=== PATIENT | female | born 1975 | race Caucasian/White ===

== ENCOUNTER → 2021-12-16 | Outpatient (CLI) | payer OTHER ==
--- NOTE | 2021-12-16 12:22 | XR ---
EXAMINATION TYPE: XR lumbar spine 2 or 3V DATE OF EXAM: 12/16/2021 Comparison: Correlation CT 12/09/2021. Clinical History: 46-year-old female pain, DDD Findings: There is a transitional lumbosacral segment with a right L5 hemisacralization and a mildly degenerati ve assimilation joint noted. Facet arthropathy mid to lower lumbar spine. Mild degenerative disc dise ase mid and lower lumbar spine. Vertebral body heights are preserved and alignment is maintained. Impression: 1. Patient's left L4-L5 surgical change is not well delineated radiographically. 2. Right L5 hemisacralization with a mildly degenerative assimilation joint. This has likely contribu anand to the accelerated degenerative disc disease above at L4-L5. 3. Facet arthropathy mid to lower lumbar spine. 4. No vertebral compression collapse or malalignment.
== END | disposition home or self-care (01) ==
LOC: RADXRMAIN 09:45
PROVIDERS: ATTEND Family Medicine
DX: M47.816 Spondylosis without myelopathy or radiculopathy, lumbar region (principal)
CPT/HCPCS: 72100

== ENCOUNTER → 2022-05-12 | Outpatient (CLI) | payer BC ==
[2022-05-12 08:43] VITALS: BP 173/103; PULSE 80; RESP 17; TEMP 98.7
--- NOTE | 2022-05-12 09:32 | P.HPOB ---
History of Present Illness H&P Date: 05/12/22 Chief Complaint: The patient is here for her routine gynecologic exam and ma mmogram. This is a 46-year-old 0-1 with an LMP of January 2022. The patient is here to establish with this office. She has not had a pelvic exam since approximately 2018. She is on oral contraception and has been taking it in a semicontinuous fashion. She was started on the oral contraception in [place]. She has since moved to [place]. She is a and is not sexually active. She has been a since August 2021. She thinks the oral contraception helps with a skin condition. She states without oral contraception she tends to have more flaky skin. She is without gynecologic complaints. Review of Systems Her weight has fluctuated by about 15 pounds over the past year. She states she lost weight when her earlier this year, but has gained some back. She denies cardiac problems. Respiratory: She can feel short of breath with exertion. GI: She does have some stomach issues including gastric reflux. Past Medical History Past Medical History: GERD/Reflux, Hypertension Additional Past Medical History / Comment(s): IRRITABLE BOWEL, degenerative disc disease. 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 History of Any Multi-Drug Resistant Organisms: None Reported Past Surgical History: Breast Surgery, Tonsillectomy Additional Past Surgical History / Comment(s): Back surgery, BREAST AUGMENTATION with silicone implants. LEEP procedure of the cervix in her 20s. Past Anesthesia/Blood Transfusion Reactions: No Reported Reaction Past Psychological History: Anxiety, Depression Smoking Status: Never smoker Past Alcohol Use History: Occasional (6 drinks per week.) Additional Past Alcohol Use History / Comment(s): History of heavy alcohol use in the past. Past Drug Use History: None Reported Additional Drug Use History / Comment(s): CBD gummies. Additional History: She has been a since August 2021. 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 - Past Family History Mother Family Medical History: Cancer, COPD, Diabetes Mellitus, Thyroid Disorder Additional Family Medical History / Comment(s): Breast cancer. Hypothyroidism. Maternal aunt has diabetes. Father Family Medical History: Unable to Obtain Medications and Allergies Home Medications Medication Instructions Recorded Confirmed Type Amitriptyline HCl 10 mg PO DAILY 10/25/22 10/25/22 History Ethinyl Estradiol/Drospirenone 1 tab PO DAILY 05/12/22 05/12/22 History [Aimee 28 Tablet] Gabapentin 300 mg PO HS 05/12/22 05/12/22 History HYDROcodone/APAP 7.5-325MG [[place] 1 tab PO BID PRN 05/12/22 05/12/22 History 7.5-325] Lisinopril/Hydrochlorothiazide 1 tablet PO DAILY 05/12/22 05/12/22 History [Zestoretic 20-25] Omeprazole 40 mg PO DAILY PRN 05/12/22 05/12/22 History Spironolactone 25 mg PO DAILY 05/12/22 05/12/22 History Allergies Allergy/AdvReac Type Severity Reaction Status Date / Time No Known Allergies Allergy Unverified 05/12/22 08:33 Exam Vital Signs Temp Pulse Resp BP Pulse Ox 05/12/22 08:37 98.7 F 80 17 173/103 100 Intake and Output 05/11/22 05/12/22 05/12/22 22:59 06:59 14:59 Other: Weight 65.317 kg Repeat blood pressure 140/90. Height 5 feet 6 inches, weight 144 pounds, BMI 23.2. This is a well-developed well-nourished white female who is alert and oriented times 3 in no acute distress. HEENT: Within normal limits. NECK: Supple without mass or thyromegaly. CHEST AND LUNGS: Clear to auscultation. HEART: Regular rate and rhythm. BREASTS: Are without mass or discharge. Breasts are consistent with bilateral breast implants. AXILLARY EXAM: Negative for adenopathy. BACK: Negative for CVA tenderness. ABDOMEN: Soft, nontender, without palpable masses. PELVIC EXAM: Normal external genitalia. Cervix and vagina appear normal. There is no unusual discharge. There is no evidence of prolapse. The uterus is midposition, nongravid size and nontender. There are no palpable adnexal masses or tenderness. RECTAL EXAM: negative for mass or tenderness and is negative for occult blood. EXTREMITIES: Nontender. IMPRESSION: 1. 46-year-old female with normal gynecologic exam. 2. The patient is on semicontinuous oral contraception which is currently being use for non-contraception use. 3. History of chronic hypertension with elevated blood pressure today. PLAN: 1. Pap smear cotest was performed. 2. Self breast awareness was discussed with the patient. We have also discussed symptoms associated with inflammatory breast cancer. 3. Screening mammogram will be done today. 4. I recommended she discontinue her oral contraception. She understands that with oral contraception, she increases her risk for blood clots, heart attack, and stroke. Along with her age and history of chronic hypertension and elevated blood pressure today, I think oral contraception significantly increases her risk for problems. She was instructed to discontinue oral contraception. 5. STD prevention was discussed. I stressed the importance of limiting sexual partners and using condoms, if she is sexually active. 6. I have recommended that she make sure she takes her blood pressure medication. She states she has not been consistent with this. I have also recommended that she check her own blood pressure on a regular basis. She is to follow-up with her PCP for blood pressure elevations. 7. She will also follow up with her PCP for other ongoing medical issues including shortness of breath with exertion as well as her stomach issues. 8. She was advised to return in one year for her annual well woman exam and as needed.
== END ==
LOC: WWCWWP 08:26
PROVIDERS: ATTEND Obstetrics & Gynecology
DX: Z01.419 Encounter for gynecological examination (general) (routine) without abnormal findings (principal); Z12.31 Encounter for screening mammogram for malignant neoplasm of breast; Z80.3 Family history of malignant neoplasm of breast; I10 Essential (primary) hypertension; Z79.3 Long term (current) use of hormonal contraceptives
CPT/HCPCS: 77063; 77067

== ENCOUNTER → 2022-05-25 | Outpatient (CLI) | payer BC ==
--- NOTE | 2022-05-26 04:30 | MR ---
EXAMINATION TYPE: MR lumbar spine wo con DATE OF EXAM: 05/25/2022 COMPARISON: None HISTORY: Low back pain that radiates down mostly left leg, sometimes right, history of surgery. Multiplanar multiecho imaging of the lumbar spine performed with no contrast. The lumbar vertebrae have normal alignment. There is some mild disc space narrowing at L3-4 and L4-5. There is posterior mild disc bulging at L3-4 and L4-5. There is developmentally adequate spinal festus l and no significant spinal stenosis. There is no paraspinal mass. Posterior elements are intact. No compression fracture. No focal bone destruction. The neural foramina appear fairly well-maintained. IMPRESSION: Mild degenerative disc changes in the lumbar spine. Small posterior disc bulging and herniation at L3 -4 and L4-5 without spinal stenosis.
== END | disposition home or self-care (01) ==
LOC: RADMRIMAIN 20:30
PROVIDERS: ATTEND Orthopaedic Surgery
DX: M47.26 Other spondylosis with radiculopathy, lumbar region (principal); M51.16 Intervertebral disc disorders with radiculopathy, lumbar region; M48.061 Spinal stenosis, lumbar region without neurogenic claudication
CPT/HCPCS: 72148

== ENCOUNTER → 2022-06-08 | Outpatient (CLI) | payer BC ==
[2022-06-08 13:44] VITALS: PULSE 77; RESP 18
--- NOTE | 2022-06-08 14:52 | P.PAINPG ---
PQRS Measure Charge Sheet Comment: HISTORY OF PRESENT ILLNESS: 46 yr old female as a referral from Dr Edwards presents today w severe and chronic LBP x 4 yrs secondary to spondylosis for evaluation. Pt states pain level is at 6/10 in intensity, constant, localized in the lower lumbar spine, sharp, achy in character w shooting pain towards BL groin, L>R. Pain is provoked by over activity. Pain is alleviated by meds ([place] 7.5/325mg, Neurontin 300gm QHS from Dr Edwards), topicals, chiropractic treatments without relief, home exercises as tolerated, repositioning and rest. PMH: GERD, HTN, IBS, MDD/ Anxiety PSH: Cervical LEEP (in the 1999s), Lumbar Microdisectomy, Breast Augmentation, Tonsillectomy, SH: Never smoker, Occasional ETOH use ( Hx of heavy ETOH use in the past), +CBD gummies FH: Mo- Breast CA, COPD, DM, Hypothyroidism. Fa- Unable to obtain. All: NKDA Meds: See list REVIEW OF ORGAN SYSTEMS: CONSTITUTIONAL: No fevers or chills. No recent weight loss. NEUROLOGICAL: + numbness and tingling along the distal extremities. No seizure disorders or headaches. MUSCULOSKELETAL: + pain PSYCHIATRIC: Denies current depression or suicidal thoughts. Physical Examinations : Constitutional : Cooperative , not in acute distress . Neurologic : Cranial nerve II to XII intact. No focal neurological deficits. Psychiatric : alert & oriented x 3. Matching mood & appropriate affect. Judgment & insight intact. Musculoskeletal : Cervical Spine Motor strength in the deltoid and biceps: Normal right side. Normal Left side Motor strength biceps and the wrist extensors: Normal right side . Normal left side Motor strength in the triceps muscle: Normal right side. Normal left side Deep tendon reflexes: Normal at the biceps. Normal at Brachioradialis. Normal at triceps Vertebral body tenderness to deep palpation over Cervical facet loading test: positive bilaterally Spurling test: positive bilaterally Neck distraction test: positive bilaterally Patric sign: positive bilaterally Lumbar spine Motor strength lower extremities ,thigh and legs 5/5 Right side , 5/5 Left side Deep tendon reflexes : Normal Knee Jerk. Normal Ankle Jerk Vertebral body tenderness over L4 Lumbar facet Loading Test: positive Right / positive Left Range of motion of the lumbar spine Flexion 30 degrees, extension 10 degrees Straight Leg Raise test: Left/ Right positive at degree Shamar test: positive right / positive left. Severe tenderness over the Sacroiliac joint on the Right / Left sides Gaenslen test: positive bilaterally Seated flexion test: positive bilaterally. Sacral spine : Severe tenderness over the Sacroiliac joint: right side / left side Range of motion: Flexion of the lumbar spine <60 degrees Range of motion: Extension of the lumbar spine <20 degrees Gaenslen's Test positive Leonid's Test positive Shamar test: positive right side / left side Thigh Thrust Test Sacral Thrust Test Imaging: MRI without contrast of the lumbar spine from 05/25/22 reviewed Assessment/ Plan : Lumbar DDD, lumbar spondylosis Recommendation of L paramedian ARNULFO L5-S1. May need a series of injections, up to 3 per 6 mo period, for optimal pain relief. Risks, benefits of procedure discussed and patient verbalized understanding. Denies aspirin or anti- coagulant use or medical history of diabetes. Protocol for discontinuation/ continuation of medications vanessa procedure discussed. All questions answered. I have spent greater than 30 minutes on patient care today. Dr Small was available by phone for the evaluation of this patient. The time was used to rev iew the medical records including relevant urine studies and Prescription history (MAPs), review of the available imaging, evaluation and examination of the patient, coordination of care with the medical staff and if applicable referring physicians, as well as creation of the medical record Home Medications: Ambulatory Orders Amitriptyline HCl 10 mg PO DAILY 05/12/22 Ethinyl Estradiol/Drospirenone [Aimee 28 Tablet] 1 tab PO DAILY 05/12/22 Gabapentin 300 mg PO HS 05/12/22 HYDROcodone/APAP 7.5-325MG [[place] 7.5-325] 1 tab PO BID PRN 05/12/22 Lisinopril/Hydrochlorothiazide [Zestoretic 20-25] 1 tablet PO DAILY 05/12/22 Omeprazole 40 mg PO DAILY PRN 05/12/22 Spironolactone 25 mg PO DAILY 05/12/22 Controlled Substance Measures - Controlled Substance Measures Is patient prescribed a controlled substance at discharge?: No
== END ==
LOC: PNWHC3 13:06
PROVIDERS: ATTEND Specialist
DX: M47.816 Spondylosis without myelopathy or radiculopathy, lumbar region (principal); M51.36 Other intervertebral disc degeneration, lumbar region
CPT/HCPCS: 99211

== ENCOUNTER 2022-07-14 11:31 | Day surgery (SDC) | payer BC ==
[2022-07-09 15:02] VITALS: BMI 22.8
[~2022-07-14 11:31] MED LIST: LACTATED RINGERS 1,000 ML IV SCH; LIDOCAINE 1% (10MG/ML) FOR IV START INTRADERMA PRN
[2022-07-14 12:11] VITALS: TEMP 97
[2022-07-14] MEDS ORDERED: MIDAZOLAM 2 MG/2 ML VIAL ONE (12:38)
[2022-07-14] MEDS ORDERED: methylPREDNISolone ACETATE 80 MG/ML 1 ML VIAL ONE (12:38)
[2022-07-14] MEDS ORDERED: IOPAMIDOL M200 10 ML VIAL ONE (12:38)
[2022-07-14] MEDS ORDERED: fentaNYL (PF) 50 MCG/ML 2 ML AMP ONE (12:38)
--- NOTE | 2022-07-14 12:47 | P.PCN ---
Date of Procedure: 07/14/22 Procedure(s) Performed: PREOPERATIVE DIAGNOSIS: 1- Lumbar herniated Disc Diseases 2-Lumbar spondylosis with Facet arthropathy without myelopathy. 3-lumbar radiculopathy POSTOPERATIVE DIAGNOSIS: Same as preop diagnosis. PROCEDURE 1. Lumbar epidural steroid injection under fluoroscopic guidance at the L5-S1 level. ( left paramedial ) (Fluoroscopy imaging was available in radiology department) 2. Lumbar epidurogram. ANESTHESIA: moderate sedation with intravenous Versed 2 mg ,and fentanyle 100 Mcg Sedation start time : 12:40 Sedation end time : 12:45 EBL: Minimal PROCEDURE INDICATION: The patient with low back pain and radiculitis symptoms unresponsive to conservative treatment. Fluoroscopy was used to optimize visualization of the needle placement and to maximize safety. PROCEDURE DESCRIPTION / TECHNIQUE: The patient was seen and identified in the preoperative area. Risks, benefits, complications including but not limited to infections ,bleeding ,allergic reaction to the medications ,nerve damage and not complete pain releife , and alternatives were discussed with the patient. The patient agreed to proceed with the procedure and signed the consent. IV was started, and vital signs were stab le. Patient was taken to the OR and time out was completed. The patient was placed in the prone position on procedure table and a pillow was placed under the abdomen to reduce lumbar lordosis. The lumbosacral area was prepped and draped in the usual sterile fashion.ere closely monitored during the procedure. Conscious sedation was used during the procedure to decrease patients anxiety. Vital signs was monitered during the entire procedure. Using anterior-posterior fluoroscopy, the L5-S1 interlaminar space was identified and the skin over this site was marked and then infiltrated with 1% lidocaine subcutaneously. Subsequently, a 20-gauge Tuohy epidural needle was inserted and advanced toward the epidural space ( Left paramedial ) using the ``Loss of resistance technique and guided by AP and lateral fluoroscopy. The correct needle position in the epidural space was verified with the injection of 2 mL of the water soluble contrast dye Isovue 200 contrast and observing an excellent epidurogram with the epidural spread of the dye, after negative aspiration for blood and CSF and in the absence of paresthesias. Again after negative aspiration, a 6 ml mixture containing 80 mg of Depo-medrol ( Preservetive Free ), and 2 ml of preservative free Normal Saline, and 2 ml of preservative free lidocaine 1% solution was injected and a washout of epidurogram was seen. Needle was withdrawn intact, skin was cleansed, and bandages were applied. COMPLICATIONS: None DISPOSITION / PLANS: The patient was placed in a supine position and transferred to the recovery area in a stable condition for observation. There was no evidence of lower extremity motor or sensory deficit after the procedure. Patient was discharged from the recovery room after meeting discharge criteria. Home discharge instructions were given to the patient by the staff. The patient was reexamined prior to discharge. The patient will schedule a follow up in the clinic in 2-4 weeks.
[2022-07-14] MEDS ORDERED: LACTATED RINGERS 1,000 ML IV ONE ×2 (12:50)
[2022-07-14 13:23] VITALS: BP 140/65; PULSE 65; RESP 18
--- NOTE | 2022-07-14 14:39 | FL ---
EXAMINATION TYPE: FL guided pain mgmt statistic DATE OF EXAM: 07/14/2022 FLUOROSCOPY Fluoroscopy time of 2 seconds was used during lumbar epidural injection. 1 image/s document/s the pr mary.
== END 2022-07-14 13:24 | disposition home or self-care (01) ==
LOC: ORPAIN 11:31
PROVIDERS: ATTEND Specialist
DX: M51.16 Intervertebral disc disorders with radiculopathy, lumbar region (principal); M47.26 Other spondylosis with radiculopathy, lumbar region; Z91.040 Latex allergy status
CPT/HCPCS: 81025; 62323; J2250; J1040; J3010; Q9966

== ENCOUNTER → 2022-08-13 | Outpatient (CLI) | payer BC ==
[2022-08-13 13:41] VITALS: BP 165/102; PULSE 64; RESP 18; TEMP 98.2
--- NOTE | 2022-08-13 14:59 | P.PAINPG ---
PQRS Measure Charge Sheet Comment: A 47 yr old female with a history of severe and chronic LBP secondary to lumbar DDD and spondylosis with facet arthropathy without myelopathy presents today for evaluation s/p ARNULFO L paramedian L5-S1. Pt states she experienced 70 % pain relief x 2 wks s/p procedure. Pain level is provoked at 6 /10 in intensity, constant, localized in the lumbar spine, tight, burning in character w shooting towards the L hip, buttocks and LLE. Pain is provoked by bending, lifting. Pain is alleviated with medications, topicals, injections, heat, chiropractic treatments in [id number] which didn't help, massage chair use at home, repositioning and rest. Interventional pain procedures completed include ARNULFO L paramedian L5-S1 Patient is currently on Neurontin Patient denies any side effects of the medication(s), denies excessive drowsiness or sleepiness, denies suicidal ideation and reports that the current pain medication is helping to control the pain and improve activities of daily living. Patient denies any motor or sensory deficits. Patient denies any fever or night sweats, denies any change in the bowel movements or urination. Physical Examination: -Constitutional: Cooperative. Not in acute distress . - Neurologic: Cranial nerve II to XII intact. No focal neurological deficits. - Psychatric: Alert & oriented x 3. Matching mood & appropriate affect. Judgment and insight intact. - Musculoskeletal: Cervical spine: Muscle bulk/ tone/ strength in the bilateral upper extremities normal Vertebral body tenderness to palpation over Spurling test positive Distraction test positive Facet loading test positive Thoracic spine Muscle bulk / tone/ strength in the bilateral paraspinal muscles normal Vertebral body tender to palpation over Facet loading test positive Lumbar spine: Motor bulk/ tone/ strength lower extremities , thigh and legs : 5/5 Deep tendon reflexes : Normal Knee Jerk. Normal Ankle Jerk . Vertebral body tenderness to palpation over L5 Lumbar Facet Loading Test positive Straight Leg Raise: positive at 30 degrees right side/ left side Gaenslen's Test positive Sacral spine : Severe tenderness over the Sacroiliac joint: right side / left side Range of motion: Flexion of the lumbar spine <60 degrees Range of motion: Extension of the lumbar spine <20 degrees Gaenslen's Test positive Shamar test: positive right side / left side Thigh Thrust Test Sacral Thrust Test Assessment and plan: Chronic LBP secondary to lumbar DDD, spondylosis with facet arthropathy without myelopathy Recommendation of ARNULFO L paramedian L5-S1 #2. May need a series of injections, up to 3 within a 6 mo period, for optimal pain relief. Risks, benefits of procedure discussed and pt verbalized understanding. Denies antic oagulant use or medical history of diabetes. All patient questions answered I have spent less than 30 minutes on patient care today. Dr Small was available by phone for the evaluation of this patient. The time was used to review the medical records including relevant urine studies and Prescription history (MAPs), review of the available imaging, evaluation and examination of the patient, coordination of care with the medical staff and if applicable referring physicians, as well as creation of the medical record Home Medications: Ambulatory Orders Amitriptyline HCl 10 mg PO DAILY 05/12/22 Ethinyl Estradiol/Drospirenone [Aimee 28 Tablet] 1 tab PO DAILY 05/12/22 Gabapentin 300 mg PO HS 05/12/22 HYDROcodone/APAP 7.5-325MG [[place] 7.5-325] 1 tab PO BID PRN 05/12/22 Omeprazole 40 mg PO DAILY PRN 05/12/22 Lisinopril-Hctz 20-12.5 mg [Zestoretic 20-12.5] 1 tab PO DAILY 07/09/22 Controlled Substance Measures - Controlled Substance Measures Is patient prescribed a controlled substance at discharge?: No
== END ==
LOC: PNWHC3 12:39
PROVIDERS: ATTEND Specialist
DX: M47.816 Spondylosis without myelopathy or radiculopathy, lumbar region (principal); M51.36 Other intervertebral disc degeneration, lumbar region; G89.29 Other chronic pain; Z91.040 Latex allergy status
CPT/HCPCS: 99211

== ENCOUNTER 2022-10-14 08:24 | Day surgery (SDC) | payer BC ==
[~2022-10-14 08:24] MED LIST changes: -LIDOCAINE 1% (10MG/ML) FOR IV START INTRADERMA PRN
[2022-10-14 08:58] VITALS: TEMP 97.5
[2022-10-14] MEDS ORDERED: PROPOFOL 10 MG/ML 20 ML VIAL IV ONE (09:52)
--- NOTE | 2022-10-14 10:10 | P.PCN ---
Date of Procedure: 10/14/22 Procedure(s) Performed: BRIEF HISTORY: Patient is a 47-year-old pleasant white female scheduled for an elective colonoscopy as a part of evaluation of intermittent rectal bleeding PROCEDURE PERFORMED: Colonoscopy. PREOPERATIVE DIAGNOSIS: Intermittent rectal bleeding. IV sedation per Anesthesia. PROCEDURE: After informed consent was obtained, the patient, was brought into the endoscopy unit. IV sedation was administered by Anesthesia under continuous monitoring. Digital rectal examination was normal. Initially the Olympus CF-160 flexible video colonoscope was then inserted in the rectum, gradually advanced into the cecum without any difficulty. Careful examination was performed as the scope was gradually being withdrawn. Ileocecal valve and the appendiceal orifice were visualized and appeared normal. Prep was excellent. Mucosa of the cecum, ascending colon, transverse colon, descending colon, sigmoid colon, and rectum appeared normal. Retroflexion was performed in the rectum and no lesions were seen. The patient tolerated the procedure well. IMPRESSION: Normal-appearing colon from rectum to cecum with no evidence of colorectal neoplasia. RECOMMENDATIONS: Findings of this examination were discussed with the patient as well as a family. She was advised to be a high-fiber diet and take fiber supplements a regular basis. Recommend repeat screening colonoscopy in 10 years..
[2022-10-14 10:20] VITALS: RESP 16
[2022-10-14 10:32] VITALS: BP 123/67; PULSE 52
== END 2022-10-14 11:00 | disposition home or self-care (01) ==
LOC: ORWHC2ENDO 08:24
PROVIDERS: ATTEND Internal Medicine Gastroenterology
DX: K62.5 Hemorrhage of anus and rectum (principal); I10 Essential (primary) hypertension; F41.9 Anxiety disorder, unspecified; F32.A Depression, unspecified; K21.9 Gastro-esophageal reflux disease without esophagitis; K58.9 Irritable bowel syndrome, unspecified; Z79.891 Long term (current) use of opiate analgesic; Z79.899 Other long term (current) drug therapy; Z91.040 Latex allergy status
CPT/HCPCS: 81025; 45378; J2704

== ENCOUNTER → 2022-12-31 | Outpatient (CLI) | payer BC ==
[2022-12-31 16:14] LABS: BUN/Creat Ratio 17.12 Ratio (12.00-20.00); Blood Urea Nitrogen 13.7 mg/dL (9.0-27.0); Calcium 9.7 mg/dL (8.7-10.3); Carbon Dioxide 24.5 mmol/L (21.6-31.8); Chloride 106 mmol/L (96-109); Glucose 104 mg/dL (70-110); Potassium 4.5 mmol/L (3.5-5.5); Sodium 143 mmol/L (135-145)
[2022-12-31 16:25] LABS: Basophils # (A) 0.03 X 10*3/uL (0.00-0.10); Basophils % (A) 0.6 %; HCT 42.2 % (37.2-46.3); HGB 12.9 d/dL (12.0-15.0); Lymphocytes # (A) 1.85 X 10*3/uL (0.90-5.00); Lymphocytes % (A) 36.8 %; MCH 27.4 pg (27.0-32.0); MCHC 30.6 d/dL (32.0-37.0); MCV 89.8 FL (80.0-97.0); NRBC Per 100 WBC 0 X 10*3/uL (0.00-0.01); Neutrophils # (A) 2.74 X 10*3/uL (1.80-7.70); Neutrophils % (A) 54.4 %; Platelet Count 242 X 10*3/uL (140-440); RDW 12.2 % (11.5-14.5); WBC 5.03 X 10*3/uL (4.50-10.00)
[2022-12-31 20:40] LABS: INR <0.93 sec (0.93-1.11); Prothrombin Time 10.2 sec (9.9-11.9)
== END | disposition home or self-care (01) ==
LOC: LABPAT 10:06
PROVIDERS: ATTEND Orthopaedic Surgery
DX: Z01.812 Encounter for preprocedural laboratory examination (principal); M51.26 Other intervertebral disc displacement, lumbar region; M48.061 Spinal stenosis, lumbar region without neurogenic claudication; M47.816 Spondylosis without myelopathy or radiculopathy, lumbar region
CPT/HCPCS: 80048; 85025; 85610

== ENCOUNTER 2023-01-08 12:16 | Day surgery (SDC) | payer BC ==
[2023-01-05 14:30] VITALS: BMI 22.8
--- NOTE | 2023-01-08 08:03 | P.HPOR ---
History of Present Illness H&P Date: 12/31/22 .D:Date: 12/31/22 : 04:26pm .T:Title: *[facility]... COPY... 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 Location posterior Patient notes that their pain radiates to bilateral lower extremities L>R Activity Modification No Hand Dominance right TREATMENTS COMPLETED: 6 weeks of PT completed? Month and Year of last PT date? No Physician directed home exercise completed? yes Patient has trialed the physician directed home exercise program without relief of their symptoms. Patient has attempted to go to the gym x2/week, exacerbates her symptoms and takes her a few days to recover. Medications yes List: Humble, Gabapentin, Ibuprofen Alternative interventions Chiropractic: No Massage therapy: No R.I.C.E: yes Brace: No Injections Yes, x2 mild relief temporality RFA: No S UBJECTIVE: Ms. Mei presents to the office today for a pre-operative appointment for her L4-5 decompression and fusion.Patient states no changes to her symptoms since her last appointment. Patient continues to report a general lumbar pain that radiates into bilateral lower extremities, associated with numbness and tingling. Patient states she is ready for surgery. Patient denies trailing any other treatment modalities at this time. For her symptoms, the patient takes Gabapentin, Ibuprofen and Humble. Otherwise the patient denies any f/c/sob/cp, no bladder or bowel retention/incontinence, no perineal numbness/tingling, and ambulates independently. HPI: Ms. Mei presents to the office on 11/18/22 for questions about her December surgery. Patient continues to report a general lumbar pain that radiates into bilateral lower extremities, associated with numbness and tingling. Patient does report that she had genital numbness after she had a "pop" in her back. Patient takes Gabapentin, Humble, Qelbree, and Lamictal for pain relief. Patient denies trailing any other modalities at this time. For her symptoms, the patient continues with gabapentin and Humble. Otherwise the patient denies any f/c/sob/cp, no bladder or bowel retention/incontinence, no perineal numbness/tingling, and ambulates independently. Ms. Mei presents to the office on 10/28/22 for recheck of her low back pain. Patient continues to report a general lumbar pain that radiates into bilateral lower extremities, associated with numbness and tingling. Patient does report that she feels an increase of her symptoms into her right lower extremity. Patient takes gabapentin and norco for pain relief. Patient did have a ARNULFO injection on 07/14/2022 with some relief and did have a second injection with relief initially but pain got worse. Patient also notes groin pain. Patient denies trailing any other modalities at this time. For her symptoms, the patient continues with gabapentin and Humble. Otherwise the patient denies any f/c/sob/cp, no bladder or bowel retention/incontinence, no perineal numbness/tingling, and ambulates independently. Ms. Mei presents to the office on 08/04/2022 for recheck of her low back pain and MRI results. Patient continues to report a general lumbar pain that radiates into bilateral lower extremities, associated with numbness and tingling. Patient does report that she feels an increase of her symptoms into her right lower extremity. Patient did have a ARNULFO injection on 07/14/2022 with some relief. She has an appointment scheduled for next week. Patient denies trailing any other modalities at this time. For her symptoms, the patient continues with gabapentin and Humble. Otherwise the patient denies any f/c/sob/cp, no bladder or bowel retention/incontinence, no perineal numbness/tingling, and ambulates independently. Ms. Mei was last seen on 04/30/22 regarding an evaluation of their low back pain. Patient reports a dull lumbar pain ongoing for a few years with an onset in May 2019 after she had returned to work post surgery L4-L5 microdiscectomy that she had in [place]. In addition to their lumbar pain, they do report that it radiates into the bilateral lower extremities, associated with numbness and tingling, left greater than right. Overall the patient has seen a progressive increase in symptoms since their onset. Ms. Mei symptoms are exacerbated with bending, lifting, twisting, standing for a period of time, and ambulating on hard floors, due to this they notes that it is increasingly difficult for Ms. Mei to complete many of their daily tasks. Patient is having moderate sleep disturbances as well due to their ongoing pain and associated symptoms. Regarding treatments, the patient has previously trialed the above listed modalities. Patient denies trialing any other modalities at this time. For their symptoms, the patient has been taking Humble and Gabapentin. Otherwise the patient denies any f/c/sob/cp, no bladder or bowel retention/incontinence, no perineal numbness/tingling, and ambulates independently. The patients' past social, medical, family, surgical history, as well as review of systems, have been reviewed. Please refer to the Neurosurgery History and Physical form that has been scanned in to our electronic medical record system. 14 points review of systems completed and as stated in HPI, all other systems reviewed are negative. Social History: Reviewed, see appropriate section of the chart for details. P3 Family History: Reviewed, see appropriate section of the chart for details. P2 Past Medical History: Reviewed, see appropriate section of the chart for details. P1 Current Medications: Rx: amitriptyline Ref: 0 Rx: gabapentin 300 mg capsule Ref: 0 Instructions: take 1 capsule (300 mg) by oral route QHS Rx: HYDROcodone 7.5 mg-acetaminophen 325 mg tablet Ref: 0 Instructions: take 1 tablet by oral route every 4 hours as needed for pain Rx: lisinopriL 20 mg-hydrochlorothiazide 12.5 mg tablet Ref: 0 Instructions: take 1 tablet by oral route once daily Rx: omeprazole 40 mg capsule,delayed release Ref: 0 Instructions: take 1 capsule (40 mg) by oral route 2 times per day before a meal Rx: spironolactone 25 mg tablet Ref: 0 Instructions: take 1 tablet (25 mg) by oral route 2 times per day Rx: Aimee (28) 3 mg-0.02 mg tablet Ref: 0 Instructions: take 1 tablet by oral route once daily P1 PHYSICAL EXAMINATION: General: Awake, alert, appropriate for age, in no acute distress. HEENT: No unusual neck masses around region of lateral neck triangle, thyroid, supraclavicular groove Heart: Regular rate and rhythm, normal S1, S2 and no murmur/gallop. Lungs: Clear to auscultation bilaterally with no use of accessory muscles. Extremities: Skin warm and dry without acute lesions, coloration, temperature, skin intact, no tenderness or erythema Integument: Hairy patches: ABSENT Dorsal skin dimples: ABSENT Cafe au lait spots: ABSENT Surgical incisions: n/a Palpation: Please see Pain drawing on Intake sheet for further detail. Midline spinal tenderness: No E6 Cervical Tenderness: NO E6 Paralumbar tenderness: YES E6 Parathoracic tenderness: No E6 Buttocks tenderness: YES E6 Sacroiliac Tenderness: No POSTURAL and MUSCULO-SKELETAL EVALUATION: Coronal Balance: NEUTRAL Recumbent testing: Patient is able to lay flat on back Sagittal Balance: NEUTRAL Shoulder Profile: LEVEL Pelvic Girdle: LEVEL Neck ROM: UNRESTRICTED Lumbar ROM: RESTRICTED Shoulder ROM: Symmetrical Hip ROM: Symmetrical Knee ROM: Symmetrical Hands: Normal appearance, symmetrical Feet: Normal appearance, Symmetrical VASCULAR STATUS : LEFT RIGHT Wrist Pulses INTACT INTACT Pedal Pulses (Dors. pedis & post.tibialis) INTACT INTACT Color NORMAL NORMAL Edema Absent Absent NEUROLOGIC EXAMINATION: Mental Status:Awake and alert, fully oriented, with normal attention, concentration and memory, and fluent, appropriate speech. Cranial Nerves: I: Olfactory not tested. II: Visual acuity normal, no visual field deficit noted with confrontation. III,IV: Normal pupillary reflexes & intact extraocular movements without nystagmus. V,: Intact symmetrical facial sensation. VII: Intact symmetrical facial motor movement VIII: Hearing intact. IX,X: Intact gag, swallow, & normal voice. XI: Sternocleidomastoid, trapezius function intact. XII: Tongue midline with normal movements. L'hermitte's Sign: Negative / absent Spurling'Sign: Absent bilaterally. Cubital percussion test: Absent bilaterally. Brooks-Tinel sign - Carpal region: Absent bilaterally. Straight Leg Raising: Absent bilaterally. 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 Sensory system (0-4, N/T) Test type RU KEYSHA RL LL Joint-Position 2 2 2 2 Vibration 2 2 2 2 Pain & LT sense 2 2 2 2 Dermatomal Deficit: None None L4-L5 L4-L5 Gait and Functional Evaluation: Ambulatory aids: Independent Romberg's test: Intact bilaterally Toe heel walk / heel-toe walk intact while maintaining satisfactory balance? yes Squatting/straightening w/o assistance to a min of 60 degree knee flexion? No Single leg stance: intact Trendelenburg sign negative bilaterally Hand and finger dexterity intact bilaterally? yes Disdiadochokinesis examination negative bilaterally? yes RADIOGRAPHIC STUDIES: XRay taken on 04/30/22 of Lumbar Spine multiview and Pelvis at [facility]: AP lateral flexion-extension films of the lumbar spine obtained in the office and demonstrates spondylotic changes at L4-L5 and L5-S1. There is some abnormal motion noted between flexion-extension L4-L5. There is no acute fracture or other dislocation noted lumbar lordosis is reasonable at 56 of pelvic incidence around 60. No other acute fracture dislocation otherwise noted AP pelvis demonstrates congruent level pelvis no fracture no hip osteoarthritis MRI scancompleted [facility] from05/25/22 of the lumbar spine: Images were obtained and reviewed with the patient in office. This demonstrates spondylosis L3 4 L4 5 with disc degeneration disc height loss and disc bulging. There is a herniation present at L4-L5 which is paracentral posterior lateral more prominent left-hand side causing left central and foraminal stenosis which is moderate to severe. There is encroachment on the L5 nerve root. L3 4 disc bulge is minimal. This disc herniation extending the lateral into the foramen at L4-L5.no other fractures or lesions noted CT scan from 12/09/21 of Lumbar Spine at [facility]: images are reviewed and demonstrate disc collapse spondylosis with endplate sclerosis at L4-L5. There is disc herniation present at L4-L5 which is notable. This is because there is some disc osteophyte complex which is noted. No acute fracture or other dislocations noted alignment is fairly well-maintained facet joints show that the left facet at L4 5 was nearly completely removed at her previous surgery. The right facet is sclerotic with air within the joint space as well as spondylotic and osteoarthritic. There facet cysts present. No other acute fracture or dislocation noted. IMPRESSION: It was my pleasure to have seen and examined Ramila. I reviewed the patient's clinical syndrome, physical findings, and imaging studies during the appointment today. It is my impression that the patient has a diagnosis of. 1. L4-L5 spondylosis with disc herniation recurrent and moderate to severe foraminal and central stenosis 2. Status post previous L4-5 laminotomy with discectomy 3. Left lower extremity radiculopathy with left lower extremity weakness 4. Left lower extremity paresthesias .DX:Diagnosis: Other spondylosis with radiculopathy, lumbar region : ICD10 = M47.26 / ICD9 = 721.3 / SNOMED = 800202707 .DX:Diagnosis: Paresthesia of left lower extremity : ICD10 = R20.2 / SNOMED = 80097417801314361 .DX:Diagnosis: Lower extremity weakness : ICD10 = G83.12 / SNOMED = 850815238 I outlined the natural course history without intervention and various interventional options. PLAN All options were reviewed today, we decided the best course of action would be: -I discussed treatment options with the patient, including operative and non- operative options, and they have elected to proceed with the following surgical procedure: L4-5 Decompression and Fusion The indications, risks, benefits, and alternatives to surgery were discussed with the patient and family at length. Specifically (but not limited to) the risks of infection, stiffness, recurrence of symptoms, need for revision surgery, local numbness, neurovascular injury, and blood clots were discussed. The patient's questions were answered. The decision to proceed was made. Consent will be obtained for the procedure. -Ambulate daily -Take pain medications and post op medications as needed and as directed -Ice and rest for pain and swelling control. Spine Surgery Risk Review and Patient Summary Ms. Mei is presenting for evaluation of Lumbar pain, LE weakness and paresthesia. It was my pleasure to have seen and examined Ms. Mei. In our visit today we have had a chance to go over subjective complaints, physical examination findings and treatments including the natural course history without intervention and various interventional options. The patients imaging demonstrates: XRay taken on 04/30/22 of Lumbar Spine multiview and Pelvis at [facility]: AP lateral flexion-extension films of the lumbar spine obtained in the office and demonstrates spondylotic changes at L4-L5 and L5-S1. There is some abnormal motion noted between flexion-extension L4-L5. There is no acute fracture or other dislocation noted lumbar lordosis is reasonable at 56 of pelvic incidence around 60. No other acute fracture dislocation otherwise noted AP pelvis demonstrates congruent level pelvis no fracture no hip osteoarthritis MRI scancompleted [facility] from05/25/22 of the lumbar spine: Images were obtained and reviewed with the patient in office. This demonstrates spondylosis L3 4 L4 5 with disc degeneration disc height loss and disc bulging. There is a herniation present at L4-L5 which is paracentral posterior lateral more prominent left-hand side causing left central and foraminal stenosis which is moderate to severe. There is encroachment on the L5 nerve root. L3 4 disc bulge is minimal. This disc herniation extending the lateral into the foramen at L4-L5.no other fractures or lesions noted CT scan from 12/09/21 of Lumbar Spine at [facility]: images are reviewed and demonstrate disc collapse spondylosis with endplate sclerosis at L4-L5. There is disc herniation present at L4-L5 which is notable. This is because there is some disc osteophyte complex which is noted. No acute fracture or other dislocations noted alignment is fairly well- maintained facet joints show that the left facet at L4 5 was nearly completely removed at her previous surgery. The right facet is sclerotic with air within the joint space as well as spondylotic and osteoarthritic. There facet cysts present. No other acute fracture or dislocation noted. On physical exam, Ms. Mei demonstrates: Patient continues to report a general lumbar pain that radiates into bilateral lower extremities, associated with numbness and tingling. Patient does report that she feels an increase of her symptoms into her right lower extremity. Patient takes gabapentin and norco for pain relief. Patient did have a ARNULFO injection on 07/14/2022 with some relief and did have a second injection with relief initially but pain got worse. Patient also notes groin pain. I have explained to the patient that as their condition progresses it will cause further neurological deficits and eventual paralysis. Based on the patients imaging, physical exam, and the rapid progression and disabling nature of their symptoms, at this time I recommend surgery in the form of a: L4-5 Decompression and Fusion . I discussed the risk and benefits of this procedure at length with Ms. Mei. The patient agreed to considered pursuing the procedure abovementioned. Prior to surgery, she should follow up with her PCP (Cardio, ID, IM etc) for clearance. Questions were invited and answered, and the patient wishes to proceed as outlined below. Currently, I am recommendin. L4-5 Decompression and Fusion 2.Follow up with PCP for surgical clearance 3.Review of surgical risks and benefits as well as an educational packet on the proposed surgical procedure. Risks: All surgical procedures come with inherent risks, including those related to positioning, anesthesia, intraoperative findings, and postoperative complications. It is important to understand that surgery does not come with any guarantee of a successful outcome as complications and adverse events are always possible. The patient was given a handout in office today discussing the surgical procedure and risks associated with the intervention, both of which were discussed with the patient. These risks include but are not limited to the following: * Experiencing same, different or even worse symptoms in back, neck, arms, or legs compared to before surgery. Requiring further surgery or other forms of treatment presently or at some time in the future at same or other levels of the intended spine surgery. On an extreme but fortunately relatively rare basis severe complication such as blindness, stroke, heart attack, temporary and/or permanent nerve injury, paralysis, coma, or may occur, sometimes without known explanation. Surgical complications may include but are not limited to risk of infection, fluid accumulation in the surgical dissection site, including a seroma or hematoma, that requires additional surgery, wound drainage, bleeding, new numbness or weakness, vision changes/loss, spinal fluid leakage, non-healing and/or infected incision, headaches, difficulty or inability to swallow, hoarseness, hemopneumothorax, pneumothorax, impotence, retrograde ejaculation, vaginal dryness; injury to nerves, spinal cord, blood vessels, lymphatics or other vital organs (i.e., bowel injury, injury to the great vessels); heterotopic bone formation; complications related to the hardware such as screws, rods, cages including misplaced hardware, device failure, instrumentati on at the wrong spine level, hardware fracture/breakage, or hardware loosening; vertebral failure of the spinal column above or below the newly placed hardware; retained surgical instrumentations or devices and the need for further surgery. * Medical risks of the planned spine surgery include but are not limited to generalized Infections to the whole body or local areas outside of the surg ical site (sepsis), heart attack, bleeding, anaphylaxis, meningitis, seizure, epilepsy, hearing loss, burn lazo, laceration of the head or other areas of the body, bruising, hypersensitivity of the skin, bladder over distension; allergic reaction; shoulder injury related to positioning; fat, blood and air clots to other areas of the body like heart, lungs, brain; failure of internal organs such as lungs, kidneys, liver and excessive bleeding. If blood transfusions are necessary, note that transfusions may cause intolerance reactions such as anaphylaxis or other complex reactions. Despite best efforts, the results of spine surgery might not heal in terms of bone, soft tissues such as skin, fascia, ligaments, and joints. Additionally, in order to achieve best possible results, spine surgery may be carried out beyond the initially planned levels and involve decompression, fusion including insertion of hardware at levels other than the original intended area of surgical interest change some portions of the procedure in order to ensure the best possible outcomes. With spine surgery and spinal fusion, there are different off label uses of instrumentation (devices, implants and hardware) as well as biological substances (bone morphogenic proteins, demineralized bone matrix) as well as using extra bone from allograft sources (i.e. cadaver bone) or autograft (iliac crest bone, ribs, or the spine itself). The patient has been given information about these practices and their inherent risks and benefits. [facility] is an educational center that serves as a training facility for neurosurgical and orthopedic [employer] and Nursing students. Physician assistants are medically trained surgical providers who function in the outpatient, inpatient, and operating room setting under the direct supervision of the attending surgeon. [facility] has multiple operating rooms with single and overlapping rooms running daily. They currently function under the required guidelines as produced by the Senate Finance Committee with regards to the overlapping rooms and will continue to comply with changes to this policy as they occur. The requirements include and are complied with as follows: (1) the critical portions of the overlapping rooms will not occur at the same time, (2) the attending physician will be physically present during the critical portions of the proce dure and immediately available during the entire case, and (3) a back-up attending is designated should the primary attending not be immediately available. The patient has had a chance to review all the listed information, has been given print outs detailing this information, and has had all his/her questions answered to their satisfaction. It was my pleasure to have seen and examined Ms. Mei. In our visit today we have had a chance to go over my understanding of our patient's current condition, the natural course history without intervention and various interventional options. Questions were invited and answered, and the patient wishes to proceed as outlined above. I have seen and examined the patient for 25 minutes and we have spent more than 50% of the time in repeat and detailed c ounseling about the patient's condition, its natural course history with out and as much as can be predicted with surgery and re-review of various surgical treatment options. In conclusion, Ms. Mei requested we proceed with the above suggested surgery and are willing to accept risks and limitations of the suggested surgery as nature of the disease process and our best attempts at treatment for the condition. Follow- up: DEL Post procedure 1month 6wks 3 months 6 months 1 year Patient Education: (Informational booklet, instructions, etc) given at today's appointment: DEL Yes .ED:Patient Education: Y Medications Reviewed: YES In our visit today Ms. Mei and I have had a chance to go over my understanding of the patient's current condition, the natural course history without intervention and various interventional options. Questions were invited and answered, and the patient wishes to proceed as outlined above. I will be sure to keep you updated afterMs. Mei returns here for further follow-up. Thank you again for your referral. Please do not hesitate to contact me if you have any further questions. Signed and authenticated by: [facility] Sp[facility] [address], [address] [address] This message is confidential, intended only for the named recipient(s) and may contain information that is privileged or exempt from disclosure under applicable law. If you are not the intended recipient(s), you are notified that the dissemination, distribution or copying of this information is strictly prohibited. If you received this message in error, please notify the sender then delete this message. Patient verbalizes understanding of the information discussed. The above note was initiated by Grayson Villegas, physician recording assistant manager/embalmer for Dr. Derick Hernandez. This note has been reviewed by Dr. Hernandez, who has made his personal changes and impressions for this document. CC: Familia Edwards M.D. Past Medical History Past Medical History: COPD, GERD/Reflux, Hypertension Additional Past Medical History / Comment(s): IRRITABLE BOWEL, degenerative disc disease. 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 History of Any Multi-Drug Resistant Organisms: None Reported Past Surgical History: Breast Surgery, Tonsillectomy Additional Past Surgical History / Comment(s): Back surgery, BREAST AUGMENTATION with silicone implants. LEEP procedure of the cervix in her 20s. pain procedures. COLONOSCOPY Past Anesthesia/Blood Transfusion Reactions: No Reported Reaction Smoking Status: Never smoker - Past Family History Mother Family Medical History: Cancer, COPD, Diabetes Mellitus, Thyroid Disorder Additional Family Medical History / Comment(s): Breast cancer. Hypothyroidism. Maternal aunt has diabetes. Father Family Medical History: Unable to Obtain Medications and Allergies Home Medications Medication Instructions Recorded Confirmed Type Amitriptyline HCl 10 mg PO HS 05/12/22 01/05/23 History Gabapentin 300 mg PO HS 05/12/22 01/05/23 History HYDROcodone/APAP 7.5-325MG [Humble 1 tab PO BID PRN 05/12/22 01/05/23 History 7.5-325] Omeprazole 40 mg PO DAILY PRN 05/12/22 01/05/23 History lisinopriL [Zestril] 20 mg PO DAILY 09/14/22 01/05/23 History Multivit-Min/Folic Acid/Biotin 133.3 mcg PO DAILY 10/09/22 01/05/23 History [Hair, Skin and Nails Softgel] Multivitamins, Thera [Multivitamin 1 tab PO DAILY 10/09/22 01/05/23 History (formulary)] Albuterol Sulfate [Proair 1 puff INHALATION Q6H PRN 01/05/23 01/05/23 History Digihaler] Atomoxetine HCl [Strattera] 10 mg PO QAM 01/05/23 01/05/23 History Budesonide-Formot 160-4.5 Mcg 2 puff INHALATION BID 01/05/23 01/05/23 History [Symbicort 160-4.5 Mcg Inhaler] Triamterene/Hydrochlorothiazid 1 each PO DAILY 01/05/23 01/05/23 History [Triamterene-Hctz 37.5-25 mg Cp] lamoTRIgine [LaMICtal] 50 mg PO BID 01/05/23 01/05/23 History norethindrone-e.estradioL-iron 1 each PO HS 01/05/23 01/05/23 History [Junel Fe 1.5 mg-30 Mcg Tablet] Allergies Allergy/AdvReac Type Severity Reaction Status Date / Time latex Allergy itchy, Verified 01/05/23 14:10 watery eyes Physical Examination Osteopathic Statement: *. No significant issues noted on an osteopathic structural exam other than those noted in the History and Physical/Consult.
[~2023-01-08 12:16] MED LIST changes: +ACETAMINOPHEN TAB 500 MG TAB PO PRN; +GABAPENTIN 300 MG CAP PO PRN; -LACTATED RINGERS 1,000 ML IV SCH; +ONDANSETRON 4 MG/2 ML VIAL IVP PRN; +SCOPOLAMINE 1 MG/72 HR PATCH TRANSDERM ONE; +TRANEXAMIC 1,000 MG/100ML-NACL 1,000 MG in SALINE 1 100ML.BAG IVPB PRN
[2023-01-08] MEDS: LACTATED RINGERS 1,000 ML IV SCH ×2 (12:46→21:06)
[2023-01-08] MEDS ORDERED: LACTATED RINGERS 1,000 ML IV ONE (13:12)
[2023-01-08] MEDS ORDERED: MIDAZOLAM 2 MG/2 ML VIAL IV ONE (15:31)
[2023-01-08] MEDS ORDERED: HYDROmorphone (PF) 1 MG/ML ONE (15:44)
[2023-01-08] MEDS ORDERED: ROCURONIUM 10 MG/ML (5 ML VIAL) IV ONE (15:44)
[2023-01-08] MEDS ORDERED: fentaNYL (PF) 50 MCG/ML 2 ML AMP ONE (15:44)
[2023-01-08] MEDS ORDERED: GLYCOPYRROLATE 0.2 MG/ML 2 ML VIAL ONE (15:44)
[2023-01-08] MEDS ORDERED: TRANEXAMIC 1,000 MG/100ML-NACL PREMIX BAG ONE (15:44)
[2023-01-08] MEDS ORDERED: PROPOFOL 10 MG/ML 20 ML VIAL IV ONE (15:44)
[2023-01-08] MEDS ORDERED: SUCCINYLCHOLINE CHLORIDE 200 MG/10 ML VIAL IV ONE (15:44)
[2023-01-08] MEDS ORDERED: NEOSTIGMINE 1 MG/ML 10 ML VIAL ONE (15:44)
[2023-01-08] MEDS ORDERED: MIDAZOLAM 2 MG/2 ML VIAL ONE (15:44)
[2023-01-08] MEDS ORDERED: LIDOCAINE 2% INJ 20 MG/ML (2 ML VIAL) ONE (15:44)
[2023-01-08] MEDS ORDERED: BUPIVACAINE (PF) 0.5% 30 ML VIAL SQ ONE ×2 (16:21)
[2023-01-08] MEDS ORDERED: LIDOCAINE 2%-EPI 1:100,000 20 ML VIAL SQ ONE ×2 (16:21)
[2023-01-08] MEDS ORDERED: THROMBIN (BOVINE) 5,000 UNIT VIAL TOPICAL ONE (16:38)
[2023-01-08] MEDS ORDERED: GELATIN SPONGE,ABSORB (LARGE) 1 EACH SPONGE TOPICAL ONE (16:38)
[2023-01-08] MEDS ORDERED: HYDROcodone/APAP 10-325MG 1 EACH TAB PO PRN (17:55)
[2023-01-08] MEDS ORDERED: HYDROcodone/APAP 5-325MG 1 EACH TAB PO PRN (17:55)
[2023-01-08] MEDS ORDERED: HYDROmorphone 0.5 MG/0.5 ML SYRINGE IVP PRN (17:55)
[2023-01-08] MEDS ORDERED: MAGNESIUM HYDROXIDE 2,400 MG/30 ML CUP PO PRN (17:57)
--- NOTE | 2023-01-08 18:09 | FL ---
Intraoperative/procedural fluoroscopic services were provided. Total fluoroscopy time is 8 point seco nds with a total of 1 submitted images to PACS. Please see the operative/procedural note for further details. DAP: 11.529 Gycm2
[2023-01-08] MEDS: HYDROmorphone 0.5 MG/0.5 ML SYRINGE IVP PRN ×3 (18:18→18:43)
[2023-01-08] MEDS: MEPERIDINE 50 MG/ML SYRINGE IVP ONE ×2 (18:53→19:07)
[2023-01-08] MEDS ORDERED: ONDANSETRON 4 MG/2 ML VIAL IVP ONE (19:02)
[2023-01-08] MEDS: HYDROmorphone 1 MG/ML 1 ML SYRINGE IVP PRN (23:35)
[2023-01-08] MEDS: ONDANSETRON 4 MG/2 ML VIAL IVP PRN (23:35)
--- NOTE | 2023-01-09 00:08 | CT ---
EXAM: CT Lumbar Spine Without Intravenous Contrast CLINICAL HISTORY: ITS.REASON CT Reason: s/p L4-L5 decompression and fusion TECHNIQUE: Axial computed tomography images of the lumbar spine without intravenous contrast. CTDI is 19.7 mGy and DLP is 728 mGy-cm. This CT exam was performed using one or more of the following dose reduction techniques: automated exposure control, adjustment of the mA and/or kV according to patient size, and/or use of iterative reconstruction technique. COMPARISON: CT lumbar spine 12/09/21 FINDINGS: There are recent postoperative changes of the lumbar spine. Posterior skin closure darnell are in place. There is postoperative subcutaneous gas in the lower lumbar region. Patient has undergone left hemilaminectomy at L4-L5. Posterior hardware fixation has been performed at the L4-L5 level with paired vertical rods and bilateral pedicle screws. Hardware is intact and without complication. Interbody graft is noted at the L4-L5 level. Immature bone graft material is suggested posteriorly. There is no acute fracture or traumatic subluxation. There is normal lumbar lordosis and vertebral body height. Sacroiliac joints are normally aligned. There is mild disc bulging at the L3-L4 level. There is no spinal canal or foraminal narrowing within the lumbar spine. IMPRESSION: Expected recent postoperative changes status post L4-L5 posterior decompression, posterior hardware fixation, and interbody fusion. No hardware complication.
[2023-01-09] MEDS: HYDROcodone/APAP 10-325MG 1 EACH TAB PO PRN ×2 (00:13→05:25)
[2023-01-09] MEDS: CYCLOBENZAPRINE 5 MG TAB PO PRN ×2 (00:14→05:27)
[2023-01-09] MEDS ORDERED: GABAPENTIN 300 MG CAP PO SCH (01:00)
[2023-01-09] MEDS: HYDROmorphone 1 MG/ML 1 ML SYRINGE IVP PRN ×6 (02:49→21:15)
[2023-01-09] MEDS: ONDANSETRON 4 MG/2 ML VIAL IVP PRN ×2 (06:29→14:04)
[2023-01-09] MEDS: SENNOSIDES-DOCUSATE SODIUM 1 EACH TAB PO SCH (09:05)
[2023-01-09] MEDS: oxyCODONE-APAP 5-325MG 1 EACH TAB PO PRN ×3 (10:53→19:38)
[2023-01-09] MEDS: GABAPENTIN 300 MG CAP PO SCH ×3 (10:54→21:16)
--- NOTE | 2023-01-09 11:23 | P.PN ---
Subjective Progress Note Date: 01/09/23 Principal diagnosis: 1. L4-L5 spondylosis with disc herniation recurrent and moderate to severe foraminal and central stenosis 2. Status post previous L4-5 laminotomy with discectomy 3. Left lower extremity radiculopathy with left lower extremity weakness 4. Left lower extremity paresthesias Patient seen and examined this morning. Patient is resting comfortably in bed. Her mother is at bedside. Surgical dressings to the lumbar spine are clean dry and intact. Patient states she has not been up since the procedure. She did have difficulty with urination and was straight cathed twice throughout the night. She is currently urinating without any difficulty. Patient does have complaint of pain to the low back, medications have been adjusted. Encouraged patient to ambulate and to be up in chair for all meals. Patient has been afebrile, denies nausea/vomiting, or chest pain. Objective - Vital Signs Vital signs: Vital Signs Temp 97.8 F 01/09/23 08:00 Pulse 78 01/09/23 08:00 Resp 19 01/09/23 08:00 BP 119/73 01/09/23 08:00 Pulse Ox 100 01/09/23 08:00 FiO2 Intake & Output 01/08/23 01/09/23 01/09/23 18:59 06:59 18:59 Intake Total 2150 500 Output Total 933 880 Balance 1217 -380 Weight 63.7 kg 63.7 kg Intake: IV 2150 500 Output: Urine 2 Post Void Residual 883 878 Estimated Blood Loss 50 - Exam Physical Examination General: The patient is awake and alert, in no acute distress Skin: Skin is warm and dry with no obvious rashes or lesions. Surgical incisions to the lumbar spine, dressings are clean dry and intact. Eye: Pupils are equal, round and reactive to light, extra-ocular movements are intact; there is normal conjunctiva bilaterally. Neck: The neck is supple, there is no tenderness and ROM intact. Cardiovascular: There is a regular rate and rhythm. No murmur, rub or gallop is appreciated. Respiratory: Lungs are clear to auscultation, respirations are non-labored, breath sounds are equal. Gastrointestinal: Soft, non-distended, non-tender abdomen. Back: There is mild tenderness to palpation in the paralumbar region. There is no obvious deformity. . Musculoskeletal: ROM limited secondary to pain and stiffness from surgical procedure. Muscle strength in all major muscle groups of bilateral upper extremities 5/5, bilateral lower extremities 5/5. Neurological: CN 2-12 intact. There are no obvious motor or sensory deficits. Movement and coordination equal and intact. Sensory exam to light touch intact C5-T1 and intact from L2-S1. Reflexes 2/4 in bilateral upper and lower extremities. Negative Hoffmans, babinski, and clonus signs. Psychiatric: Cooperative, appropriate mood & affect, normal judgment. Assessment and Plan Assessment: Postop day 1: L4-L5 decompression and fusion 1. L4-L5 spondylosis with disc herniation recurrent and moderate to severe foraminal and central stenosis 2. Status post previous L4-5 laminotomy with discectomy 3. Left lower extremity radiculopathy with left lower extremity weakness 4. Left lower extremity paresthesias Plan: -Appreciate bilingual sales consultant and team management. -Activity: Ambulate QID, OOB all meals, up and about, limit lifting bending twisting to less than 5 lbs. Use walker or cane if needed for stability. -Daily PT/OT, increase ambulation strength and balance. -Pain control: Adequate at this time -Meds: reviewed -GI ppx: senna, Miralax -DVT PPX: OK to restart Heparin tonight -Hygiene: Shower today. Maintain dressing clean and dry. Meticulous cleaning after BMs away from the incision site -Encourage IS 10x/hr -Dispo: Anticipate discharge home today vs tomorrow 01/10/23 with homecare. *I reviewed and discussed this case with my attending Dr. Hernandez, whom has reviewed this chart and films and is in agreement with assessment and plan of care as outlined above. I have personally seen and examined the patient, performed the documentation and the assessment and plan as written. Number of minutes spent on the visit: 20m.
[2023-01-09 11:47] LABS: Basophils # (A) 0.02 X 10*3/uL (0.00-0.10); Basophils % (A) 0.3 %; Eosinophils # (A) 0.01 X 10*3/uL (0.04-0.35); Eosinophils % (A) 0.2 %; HCT 36.3 % (37.2-46.3); HGB 11.5 d/dL (12.0-15.0); Lymphocytes # (A) 1.04 X 10*3/uL (0.90-5.00); Lymphocytes % (A) 16.3 %; MCH 27.6 pg (27.0-32.0); MCHC 31.7 d/dL (32.0-37.0); MCV 87.3 FL (80.0-97.0); Mean Platelet Volume 11.6 FL (9.5-12.2); Monocytes # (A) 0.53 X 10*3/uL (0.20-1.00); Monocytes % (A) 8.3 %; NRBC Per 100 WBC 0 X 10*3/uL (0.00-0.01); Neutrophils # (A) 4.75 X 10*3/uL (1.80-7.70); Neutrophils % (A) 74.6 %; Platelet Count 175 X 10*3/uL (140-440); RBC 4.16 X 10*6/uL (4.10-5.20); RDW 12.4 % (11.5-14.5); WBC 6.37 X 10*3/uL (4.50-10.00)
[2023-01-09 12:19] LABS: BUN/Creat Ratio 7.62 Ratio (12.00-20.00); Blood Urea Nitrogen 6.1 mg/dL (9.0-27.0); Carbon Dioxide 20.7 mmol/L (21.6-31.8); Chloride 102 mmol/L (96-109); Glucose 98 mg/dL (70-110); Potassium 4.5 mmol/L (3.5-5.5); Sodium 137 mmol/L (135-145)
[2023-01-09] MEDS: CYCLOBENZAPRINE 5 MG TAB PO SCH ×2 (14:04→21:17)
--- NOTE | 2023-01-09 20:57 | P.CONS ---
History of Present Illness - History of Present Illness This is a pleasant 47 years old female with multiple medical problems as below. Patient presents with acute on chronic low back pain with radiculopathy associated with left lower extremity weakness and paresthesia Patient is a status post L4-L5 decompression and fusion surgery. Today is postoperative day #1. She is fully awake and looks comfortable but lying in bed most of the time. She still complaining from some pain at the surgery site but patient is not in distress. Patient has difficulty urinated and had straight cath but now she feels better and she can urinate with no difficulty. She denies any other symptoms, no chest pain dyspnea, no diarrhea, no neurologi luis enrique symptoms. Vitals are stable No current labs Labs from 12/31/2022 showing remarkable MRI of the spine on 05/25/2022: This demonstrates spondylosis L3 4 L4 5 with disc degeneration disc height loss and disc bulging. There is a herniation present at L4-L5 which is paracentral posterior lateral more prominent left-hand side causing left central and foraminal stenosis which is moderate to severe. There is encroachment on the L5 nerve root. L3 4 disc bulge is minimal. This disc herniation extending the lateral into the foramen at L4-L5.no other fractures or lesions noted Lumbar spine CAT scan: Expected recent postoperative changes status post L4-L5 posterior decompression and interbody fusion Review of Systems Review of systems CONSTITUTIONAL: No fever, no malaise, no fatigue. HEENT: No recent visual problems or hearing problems. Denied any sore throat. CARDIOVASCULAR: No orthopnea, PND, no palpitations, no syncope. PULMONARY: No shortness of breath, no cough, no hemoptysis. GASTROINTESTINAL: No diarrhea, no nausea, no vomiting, no abdominal pain. Normoactive bowel sounds. NEUROLOGICAL: No headaches, no weakness, no numbness. HEMATOLOGICAL: Denies any bleeding or petechiae. GENITOURINARY: Denies any burning micturition, frequency, or urgency. MUSCULOSKELETAL/RHEUMATOLOGICAL: Denies any joint pain, swelling, or any muscle pain. ENDOCRINE: Denies any polyuria or polydipsia. Past Medical History Past Medical History: COPD, GERD/Reflux, Hypertension Additional Past Medical History / Comment(s): IRRITABLE BOWEL, degenerative disc disease. 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 History of Any Multi-Drug Resistant Organisms: None Reported Past Surgical History: Breast Surgery, Tonsillectomy Additional Past Surgical History / Comment(s): Back surgery, BREAST AUGMENTATION with silicone implants. LEEP procedure of the cervix in her 20s. pain procedures. COLONOSCOPY Past Anesthesia/Blood Transfusion Reactions: No Reported Reaction Past Psychological History: ADD/ADHD, Anxiety, Bipolar, Depression Smoking Status: Never smoker Past Alcohol Use History: Occasional Additional Past Alcohol Use History / Comment(s): History of heavy alcohol use in the past. Past Drug Use History: Marijuana Additional Drug Use History / Comment(s): Delta 8-THC gummies nightly - INSTRUCTED TO REFRAIN FROM USE FOR AT LEAST 24 HOURS PRIOR TO PROCEDURE - Past Family History Mother Family Medical History: Cancer, COPD, Diabetes Mellitus, Thyroid Disorder Additional Family Medical History / Comment(s): Breast cancer. Hypothyroidism. Maternal aunt has diabetes. Father Family Medical History: Unable to Obtain Medications and Allergies Home Medications Medication Instructions Recorded Confirmed Type Amitriptyline HCl 10 mg PO HS 05/12/22 01/05/23 History Gabapentin 300 mg PO HS 05/12/22 01/05/23 History HYDROcodone/APAP 7.5-325MG [Wirt 1 tab PO BID PRN 05/12/22 01/05/23 History 7.5-325] Omeprazole 40 mg PO DAILY PRN 05/12/22 01/05/23 History lisinopriL [Zestril] 20 mg PO DAILY 09/14/22 01/05/23 History Multivit-Min/Folic Acid/Biotin 133.3 mcg PO DAILY 10/09/22 01/05/23 History [Hair, Skin and Nails Softgel] Multivitamins, Thera [Multivitamin 1 tab PO DAILY 10/09/22 01/05/23 History (formulary)] Albuterol Sulfate [Proair 1 puff INHALATION Q6H PRN 01/05/23 01/05/23 History Digihaler] Atomoxetine HCl [Strattera] 10 mg PO QAM 01/05/23 01/05/23 History Budesonide-Formot 160-4.5 Mcg 2 puff INHALATION BID 01/05/23 01/05/23 History [Symbicort 160-4.5 Mcg Inhaler] Triamterene/Hydrochlorothiazid 1 each PO DAILY 01/05/23 01/05/23 History [Triamterene-Hctz 37.5-25 mg Cp] lamoTRIgine [LaMICtal] 50 mg PO BID 01/05/23 01/05/23 History norethindrone-e.estradioL-iron 1 each PO HS 01/05/23 01/05/23 History [Junel Fe 1.5 mg-30 Mcg Tablet] Allergies Allergy/AdvReac Type Severity Reaction Status Date / Time latex Allergy itchy, Verified 01/08/23 12:51 watery eyes Physical Exam Vitals: Vital Signs Temp Pulse Pulse Resp BP BP Pulse Ox 01/09/23 00:25 96.7 F L 84 18 158/109 99 01/08/23 23:20 77 127/83 99 01/08/23 22:01 69 131/84 98 01/08/23 21:46 82 123/91 97 01/08/23 21:31 76 114/77 99 01/08/23 21:01 75 123/87 98 01/08/23 20:46 75 129/88 97 01/08/23 20:31 82 132/91 95 01/08/23 20:22 97.4 F L 77 18 138/92 96 01/08/23 20:16 87 138/92 92 L 01/08/23 19:45 83 16 137/85 100 01/08/23 19:30 84 16 139/86 97 01/08/23 19:15 58 L 16 150/81 100 01/08/23 19:00 71 16 154/72 99 01/08/23 18:45 79 18 149/89 100 01/08/23 18:30 73 16 137/82 100 01/08/23 18:15 87 18 132/81 100 01/08/23 17:58 97.1 F L 88 20 133/90 100 01/08/23 12:41 96.9 F L 73 18 140/73 98 Intake and Output 01/08/23 01/09/23 01/09/23 22:59 06:59 14:59 Intake Total 2250 Output Total 50 880 Balance 2200 -880 Intake: IV 2250 Output: Urine 2 Post Void Residual 878 Estimated Blood Loss 50 Other: Weight 63.7 kg GENERAL: The patient is alert and oriented x3, not in any acute distress. Well developed, well nourished. HEENT: Pupils are round and equally reacting to light. EOMI. No scleral icterus. No conjunctival pallor. Normocephalic, atraumatic. No pharyngeal erythema. No thyromegaly. CARDIOVASCULAR: S1 and S2 present. No murmurs, rubs, or gallops. PULMONARY: Chest is clear to auscultation, no wheezing , no crackles. ABDOMEN: Soft, nontender, nondistended, normoactive bowel sounds. No palpable organomegaly. -MUSCULOSKELETAL: No joint swelling or deformity. Surgical wound is intact and the dressing is in place EXTREMITIES: No cyanosis, clubbing, or pedal edema. NEUROLOGICAL: Gross neurological examination did not reveal any focal deficits. SKIN: No rashes. no petechiae. Results CBC & Chem 7: 01/09/23 06:50 01/09/23 06:50 Assessment and Plan Assessment: L4-L5 spondylosis with disc herniation and moderate to severe foraminal and central spinal stenosis with radiculopathy (weakness, paresthesia) of the left lower extremity. Hypertension COPD history of GERD/Reflux, Hypertension History of IRRITABLE BOWEL, degenerative disc disease. ADD/ADHD, Anxiety, Bipolar, Depression previous history of L4-L5 laminectomy and discectomy Plan: Orthopedic surgery team on the case with the planned decompression and fusion surgery for L4-L5 Pain management Recommend starting physical therapy when appropriate and cleared by orthopedic team Labs and medication were reviewed.. Continue same treatment. Continue with symptomatic treatment. Resume home medication. Monitor labs and vitals. DVT and GI prophylaxis. Further recommendations as per clinical course of the patient DVT prophylaxis: Deferred to surgery primary team GI Prophylaxis: Jose Thank you for consulting us
[2023-01-10] MEDS: HYDROmorphone 1 MG/ML 1 ML SYRINGE IVP PRN ×3 (00:33→06:59)
[2023-01-10] MEDS: oxyCODONE-APAP 5-325MG 1 EACH TAB PO PRN ×3 (01:59→12:13)
[2023-01-10] MEDS: LACTATED RINGERS 1,000 ML IV SCH (05:22)
[2023-01-10] MEDS: GABAPENTIN 300 MG CAP PO SCH (08:07)
[2023-01-10] MEDS: CYCLOBENZAPRINE 5 MG TAB PO SCH (08:08)
[2023-01-10] MEDS: SENNOSIDES-DOCUSATE SODIUM 1 EACH TAB PO SCH (08:08)
[2023-01-10 10:25] VITALS: BP 118/74; PULSE 79; RESP 17; TEMP 98
--- NOTE | 2023-01-10 11:18 | P.PN ---
Subjective Progress Note Date: 01/10/23 Principal diagnosis: 1. L4-L5 spondylosis with disc herniation recurrent and moderate to severe foraminal and central stenosis 2. Status post previous L4-5 laminotomy with discectomy 3. Left lower extremity radiculopathy with left lower extremity weakness 4. Left lower extremity paresthesias Patient seen and examined this morning. Patient is resting comfortably in bed. Surgical dressings to the lumbar spine are clean dry and intact. Patient states she feels improvement in her symptoms since procedure. She does have complaint of intermittent pain into the right groin. She states her pain is controlled on current regimen. Patient states she feels she is comfortable going home at this time with home care. She is denies any difficulty with urination. Encouraged patient to ambulate and to be up in chair for all meals. Patient has been afebrile, denies nausea/vomiting, or chest pain. Objective - Vital Signs Vital signs: Vital Signs Temp 98 F 01/10/23 07:15 Pulse 79 01/10/23 07:15 Resp 17 01/10/23 07:15 BP 118/74 01/10/23 07:15 Pulse Ox 99 01/10/23 09:02 FiO2 Intake & Output 01/09/23 01/10/23 01/10/23 18:59 06:59 18:59 Intake Total 1080 Balance 1080 Intake: Oral 1080 Other: # Voids 3 1 1 # Bowel Movements 1 - Exam Physical Examination General: The patient is awake and alert, in no acute distress Skin: Skin is warm and dry with no obvious rashes or lesions. Surgical incisions to the lumbar spine, dressings are clean dry and intact. Eye: Pupils are equal, round and reactive to light, extra-ocular movements are intact; there is normal conjunctiva bilaterally. Neck: The neck is supple, there is no tenderness and ROM intact. Cardiovascular: There is a regular rate and rhythm. No murmur, rub or gallop is appreciated. Respiratory: Lungs are clear to auscultation, respirations are non-labored, breath sounds are equal. Gastrointestinal: Soft, non-distended, non-tender abdomen. Back: There is mild tenderness to palpation in the paralumbar region. There is no obvious deformity. . Musculoskeletal: ROM limited secondary to pain and stiffness from surgical procedure. Muscle strength in all major muscle groups of bilateral upper extremities 5/5, bilateral lower extremities 5/5. Neurological: CN 2-12 intact. There are no obvious motor or sensory deficits. Movement and coordination equal and intact. Sensory exam to light touch intact C5-T1 and intact from L2-S1. Reflexes 2/4 in bilateral upper and lower extremities. Negative Hoffmans, babinski, and clonus signs. Psychiatric: Cooperative, appropriate mood & affect, normal judgment. - Labs CBC & Chem 7: 01/09/23 06:50 01/09/23 06:50 Labs: Abnormal Lab Results - Last 24 Hours (Table) 01/09/23 01/09/23 Range/Units 06:50 06:50 Hgb 11.5 L (12.0-15.0) d/dL Hct 36.3 L (37.2-46.3) % MCHC 31.7 L (32.0-37.0) d/dL Eosinophils # 0.01 L (0.04-0.35) X 10*3/uL Carbon Dioxide 20.7 L (21.6-31.8) mmol/L Anion Gap 14.30 H (4.00-12.00) mmol/L BUN 6.1 L (9.0-27.0) mg/dL BUN/Creatinine Ratio 7.62 L (12.00-20.00) Ratio Assessment and Plan Assessment: Postop day 2: L4-L5 decompression and fusion 1. L4-L5 spondylosis with disc herniation recurrent and moderate to severe foraminal and central stenosis 2. Status post previous L4-5 laminotomy with discectomy 3. Left lower extremity radiculopathy with left lower extremity weakness 4. Left lower extremity paresthesias Plan: -Appreciate home planning consultant salesperson and team management. -Activity: Ambulate QID, OOB all meals, up and about, limit lifting bending twisting to less than 5 lbs. Use walker or cane if needed for stability. -Daily PT/OT, increase ambulation strength and balance. -Pain control: Adequate at this time -Meds: reviewed -GI ppx: senna, Miralax -DVT PPX: heparin -Hygiene: Shower today. Maintain dressing clean and dry. Meticulous cleaning after BMs away from the incision site -Encourage IS 10x/hr -Dispo: Anticipate discharge home today 01/10/23 with homecare. *I reviewed and discussed this case with my attending Dr. Hernandez, whom has reviewed this chart and films and is in agreement with assessment and plan of care as outlined above. I have personally seen and examined the patient, performed the documentation and the assessment and plan as written. Number of minutes spent on the visit: 20m.
--- NOTE | 2023-01-10 11:28 | P.DS ---
Providers Date of admission: 01/08/23 Expected date of discharge: 01/10/23 Attending physician: Derick Hernandez DO Consults: 01/08/23 17:57 Consult Physician Routine Consulting Provider: Familia Edwards Reason/Comments: Medical Management Do you want consulting provider notified?: Yes Primary care physician: Familia Edwards [facility] Course: Hospital Course: The patient was evaluated preoperatively and found to have the diagnosis of lumbar spondylosis. They underwent appropriate preoperative care and were willing to undergo the intended procedure. They underwent a successful L4-L5 minimally invasive decompression and fusion, were recovered appropriately and sent to the floor. While on the floor they worked with physical therapy, occupational therapy and nursing to enhance their recovery experience. Their pain was well controlled through their stay and they were started on appropriate medications, DVT ppx modalities, activity and dietary needs. Daily labs were monitored closely, and transfusions were only used when necessary. Medicine as well as other consulting services have made their input and have helped with our team approach and multidisciplinary care. PT milestones have been met and passed and they have made the recommendation of home with home care for this patient and treating providers agree with this care path. The patient will be discharged home with appropriate medications, instructions and follow-up information and in stable condition. Patient Condition at Discharge: Good Plan - Discharge Summary Discharge Rx Participant: Yes New Discharge Prescriptions: New cefaDROXiL [Duricef] 500 mg PO Q12HR 5 Days #10 cap Cyclobenzaprine [Flexeril] 5 mg PO TID #90 tablet Gabapentin [Neurontin] 300 mg PO TID #90 cap Sennosides/Docusate Sodium [Senna Plus 8.6-50 mg Softgel] 1 each PO DAILY PRN #20 capsule PRN Reason: Constipation oxyCODONE HCL/ACETAMINOPHEN [Oxycodone-Acetaminophen 5-325] 1 each PO Q4-6H PRN #56 tab PRN Reason: Pain No Action Amitriptyline HCl 10 mg PO HS Omeprazole 40 mg PO DAILY PRN PRN Reason: Heartburn Gabapentin 300 mg PO HS Multivit-Min/Folic Acid/Biotin [Hair, Skin and Nails Softgel] 133.3 mcg PO DAILY Atomoxetine HCl [Strattera] 10 mg PO QAM Albuterol Sulfate [Proair Digihaler] 1 puff INHALATION Q6H PRN PRN Reason: Wheezing Triamterene/Hydrochlorothiazid [Triamterene-Hctz 37.5-25 mg Cp] 1 each PO DAILY HYDROcodone/APAP 7.5-325MG [Tennga 7.5-325] 1 tab PO BID PRN PRN Reason: Pain lisinopriL [Zestril] 20 mg PO DAILY Multivitamins, Thera [Multivitamin (formulary)] 1 tab PO DAILY Budesonide-Formot 160-4.5 Mcg [Symbicort 160-4.5 Mcg Inhaler] 2 puff INHALATION BID lamoTRIgine [LaMICtal] 50 mg PO BID norethindrone-e.estradioL-iron [Junel Fe 1.5 mg-30 Mcg Tablet] 1 each PO HS Discharge Medication List Amitriptyline HCl 10 mg PO HS 05/12/22 [History] Gabapentin 300 mg PO HS 05/12/22 [History] HYDROcodone/APAP 7.5-325MG [Tennga 7.5-325] 1 tab PO BID PRN 05/12/22 [History] Omeprazole 40 mg PO DAILY PRN 05/12/22 [History] lisinopriL [Zestril] 20 mg PO DAILY 09/14/22 [History] Multivit-Min/Folic Acid/Biotin [Hair, Skin and Nails Softgel] 133.3 mcg PO DAILY 10/09/22 [History] Multivitamins, Thera [Multivitamin (formulary)] 1 tab PO DAILY 10/09/22 [History] Albuterol Sulfate [Proair Digihaler] 1 puff INHALATION Q6H PRN 01/05/23 [History] Atomoxetine HCl [Strattera] 10 mg PO QAM 01/05/23 [History] Budesonide-Formot 160-4.5 Mcg [Symbicort 160-4.5 Mcg Inhaler] 2 puff INHALATION BID 01/05/23 [History] Triamterene/Hydrochlorothiazid [Triamterene-Hctz 37.5-25 mg Cp] 1 each PO DAILY 01/05/23 [History] lamoTRIgine [LaMICtal] 50 mg PO BID 01/05/23 [History] norethindrone-e.estradioL-iron [Junel Fe 1.5 mg-30 Mcg Tablet] 1 each PO HS 01/05/23 [History] Cyclobenzaprine [Flexeril] 5 mg PO TID #90 tablet 01/10/23 [Rx] Gabapentin [Neurontin] 300 mg PO TID #90 cap 01/10/23 [Rx] Sennosides/Docusate Sodium [Senna Plus 8.6-50 mg Softgel] 1 each PO DAILY PRN #20 capsule 01/10/23 [Rx] cefaDROXiL [Duricef] 500 mg PO Q12HR 5 Days #10 cap 01/10/23 [Rx] oxyCODONE HCL/ACETAMINOPHEN [Oxycodone-Acetaminophen 5-325] 1 each PO Q4-6H PRN #56 tab 01/10/23 [Rx] Follow up Appointment(s)/Referral(s): Familia Edwards MD [Primary Care Provider] - 1 Week Derick Hernandez DO [Doctor of Osteopathic Medicine] - 2 Weeks Patient Instructions/Handouts: Lumbar Spinal Fusion (DC) Activity/Diet/Wound Care/Special Instructions: Spine Discharge and Recovery Instructions Date of Surgery: 01/08/2023 Diagnosis: Lumbar spondylosis Procedure: L4-L5 ME decompression and fusion Medications: See medication list All medication refills should be obtained through your primary care doctor or your clinic spine surgeon. Please discuss prescription refills at your follow up appointment. Do not call the hospital for medication refills. Dressing: Leave your dressing in place for a total of 5 days post operatively. Then you may remove your dressing and leave open to air. Keep the area clean and if not able to keep area clean, then cover with sterile gauze and tape. Showering: You may shower 3 days after your procedure allowing soap and water to run over incision. Do not scrub. Do not soak. Blot dry. Follow up: Please confirm a follow up appointment with your surgeon 3 weeks post operatively. Please make an appointment to follow up with your PCP in 1-2 weeks after surgery for evaluation 3 phase, 3-week plan POST OP WEEKS 1-3 1. Lifting/carrying/pushing/pulling limited to less than 5 pounds. 2. Do not sit for longer than 15 minutes at one time. Get up and walk around. Prolonged sitting is NOT advised. If you lay down, see if you can tolerate laying down on you front (belly side) 3. Walk for periods of 15 minutes = 1 mile but no longer; do it multiple times times each day. 4. Ice your low back after activity. POST OP WEEKS 3-6 1. Lifting limited to less than 20 pounds. 2. Do not sit for longer than 30 minutes at a time. Frequently change positions. Use a sit-to stand workstation or take frequent breaks from sitting if you have returned to work. 3. Walk for 30 minutes each day. If possible, do these three or more times a day POST OP WEEKS 6+ At your 6-week appointment we will give you a physical therapy referral to focus on a core stabilization and strengthening program. You should also work on leg & buttock strengthening, hamstring & quadriceps stretching, and continue a low impact aerobic activity program such as swimming, walking, or riding a stationary bicycle. During the initial 6 weeks after your surgery, you are at the highest risk of re-injuring your spine. You should generally avoid BLTs (bending, lifting and twisting combination motions) and follow the above guidelines to reduce the chance of reinjury. You can anticipate post op appointments in our office at approximately 3 weeks and 6 weeks after your surgery. INCISION CARE: If your incision is not draining you do NOT need to cover it with a dressing. Keep your incision clean, dry and intact. In most cases, we apply skin glue, darnell or sutures to the incision at the time of surgery. This will be like a crust or have the appearance of a scab and will fall off in time on its own. The stitches or darnell need to be removed at 3 weeks post op appointment. You may begin to shower 3 days after surgery (this allows the glue to wiggins well). However, please avoid scrubbing the incision site or peeling off any of the skin glue. This will ensure optimal healing of your incision. Also, during this time avoid soaking the incision area in water - this includes swimming pools, hot tubs or baths. No ointments, lotions or oils on the incision until your surgeon allows. Leave darnell, sutures or glue in place. Neurological dysfunction that comes on suddenly can also be a sign of a stroke. Below some common symptoms of a stroke are listed: B - balance difficulty such as sudden onset walking or leaning to one side - NEW E - eye problem such as sudden double vision or trouble seeing on one side - NEW F - Facial weakness or numbness on one side - NEW A - Arm or leg weakness or numbness on one side - NEW S - Slurred speech or difficulty with word finding - NEW T - Time is BRAIN! Call 911 as soon as you recognize these symptoms Diet: Consume a regular diet rich in vegetables and lean protein such as chicken or fish. You should consume in a ratio of approximately 20% fats|40% carbohydrates|40%protein. Vegetables, sweet potatoes, brown rice or quinoa are examples of good carbohydrates. Chips, white bread, cookies and sweets/sugar are examples of bad carbohydrates. Limit your bad carbs, go wild with good carbs. "Life's Simple 7" Guidelines as per [place] [employer] These will help you reclaim your life after surgery and prospecting driller helper in your recovery, keeping in mind your restrictions. (1) Get Active. Physical activity can help people lose weight, control high blood pressure and cholesterol, feel emotionally better, and sleep better. (2) Control Cholesterol. Avoid a diet high in saturated fat, trans fat, & cholesterol. Limit whole milk & cream, ice cream, butter, egg yolks, processed meats (like sausage and hot dogs), and fatty meats. Choose healthy foods that are low in saturated fat, trans fat and cholesterol which include: Fruits and vegetables, fiber rich grain products (like whole grain pasta and brown rice), lean meat such as chicken, fish, nuts, seeds, and legumes. (3) Eat Better. Eat small portions. Shop at the grocery with a list and do not stray from it. Tips for a healthy diet include: Limit sodium intake to less than 1500mg daily, avoid prepackaged, processed, and fast foods, choose a diet rich in fruits, vegetables, and whole grain, high fiber foods, and limit saturated & cholesterol in your diet. (4) Manage Blood Pressure. If you have high blood pressure, you should have a cuff at home so that you can check your blood pressure regularly. Be sure you have a good cuff. An arm one is generally better than a wrist one. Bring the cuff to a doctor's appointment to validate that the measurements that your cuff are taking are accurate. Take your blood pressure twice daily when you are sitting down and relaxing. Record the numbers in a log and bring this log with you to your doctors' appointments. (5) Lose Weight if your BMI is above 25. A healthy BMI is between 19-25. To calculate Your BMI, you may use a Standard BMI Calculator on the NIH BMI website: <www.nhlbi.nih.gov/guidelines/obesity/BMI/bmicalc.htm>. Weigh oneself daily. If you are overweight, set a goal to lose weight. A pound a week loss if needed is a good target. (6) Reduce Blood Sugar. Limit foods and liquids with "added sugars." (Added sugars include sucrose, fructose, glucose, maltose, dextrose, high fructose corn syrup, corn syrup, concentrated fruit juice and honey). (7) Stop Smoking. If you smoke, quitting smoking is one of the best things that you can do for your health. Smoking increases your risk of heart attack, stroke, and peripheral vascular disease, which is a build-up of plaque in your arteries. Please discard all the cigarettes and lighters in your house. Have a plan for what you will do when you have the urge to smoke. Direct and second- hand smoke shortens your life as well as the lives of your family, friends and others around you. For your health and the health of those around you, please consider quitting! Proper Bending Body Mechanics: Maintain a wide stance with one foot slightly in front of the other. Keep your back straight. Bend utilizing the strength in your hips and knees. Do not bend at the waist. Maintain the lifted object at your waist-level close to your body. Avoid lifting weight that causes immediately pain or pain anywhere in the body afterwards. Smoking/Nicotine If there was ever one thing that you could do to increase your overall health, decrease your risk of cardiovascular problems by about 39% the second you make the choice, it is to STOP SMOKING. Your body's most instant gratification is the second you stop smoking. We have all heard the studies, read the articles but it is true, smoking is extremely bad for your overall health, and moreover it is detrimental to your bone health. Nicotine, IN ANY FORM, kills bone cells, prevents your body from healing fractures, and significantly prolongs healing after surgery. In spine surgery specifically, it increases your risk of not healing your bones to create a fusion and increases your risk of having a revision surgery due to this up to 60%. I know it is hard. I know it feels impossible. But there are ways. Take control of your life. We are here to help you through it. And when you are ready, ask us and we can direct you to help if you desire. Use the START Plan to Quit Smoking (please visit the Helpguide.org website listed below for more information): S = Set a quit date. Choose a date within the next 2 weeks, so you have enough time to prepare without losing your motivation to quit. If you mainly smoke at work, quit on the weekend, so you have a few days to adjust to the change. T = Tell family, friends, and co-workers that you plan to quit. Let your friends and family in on your plan to quit smoking and tell them you need their support and encouragement to stop. Look for a quit j carlos who wants to stop smoking as well. You can help each other get through the rough times. A = Anticipate and plan for the challenges you'll face while quitting. Most people who begin smoking again do so within the first 3 months. You can help yourself make it through by preparing ahead for common challenges, such as nicotine withdrawal and cigarette cravings. R = Remove cigarettes and other tobacco products from your home, car, and work. Throw away all your cigarettes (no emergency pack!), lighters, ashtrays, and matches. Wash your clothes and freshen up anything that smells like smoke. Shampoo your car, clean your drapes and carpet, and steam your furniture. T = Talk to your doctor about getting help to quit. Your doctor can prescribe medication to help with withdrawal and suggest other alternatives. If you can't see a doctor, you can get many products over the counter at your local pharmacy or grocery store, including the nicotine patch, nicotine lozenges, and nicotine gum. Resources for Quitting Smoking: <https://www.[place].gov/documents/[facility]/Quit_Tobacco_Resources_for_patients_313 480_7.pdf> Supplementation: Take recommended dosages of Vitamin D and Calcium to help fortify your bones and help them to heal. See your health maintenance packet for dosages and recommended levels. DVT/VTE prophylaxis: You will be given compression stockings from the hospital. Wear these daily for the first two weeks after surgery. You may take them off at night. You may be prescribed a medication to help thin your blood. Take this as directed. If you are not prescribed this medication, early and frequent ambulation has been shown to be the best prophylaxis to deep vein thrombosis and sequelae related to this event. Discharge Disposition: HOME WITH HOME HEALTH SERVICES
--- NOTE | 2023-01-11 07:01 | P.OP ---
Date of Procedure: 01/08/23 Preoperative Diagnosis: 1. L4-5 spondylosis s/p multiple L4-5 microdisectomy 2. Low back pain 3. LE radiculopathy 4. LE weakness Postoperative Diagnosis: 1. L4-5 spondylosis s/p multiple L4-5 microdisectomy 2. Low back pain 3. LE radiculopathy 4. LE weakness Procedure(s) Performed: 1. L4-5 posteriolateral and interbody fusion (49456) 2. L4-5 instrumentation (40563) 3. L4-5 revision decompression (52006) 4. L4-5 insertion of biomechanical device (28338) Use of IONM Use of IO microscope Implants: -Globus creo scerw/zelalem system -Life spine Pro Lift cage -MagnaTOs, Arthrocell, iFactor, Ventris, Autograft Anesthesia: GETA Surgeon: Derick Hernandez Chemical Research Engineer #1: Reba Franklin (Was presenta nd assisted with all aspects of the case from position to closure. ) Estimated Blood Loss (ml): 50 IV fluids (ml): 500 Urine output (ml): 0 Pathology: none sent Condition: stable Disposition: PACU Indications for Procedure: Ms. Mei is presenting for evaluation of Lumbar pain, LE weakness and paresthesia. It was my pleasure to have seen and examined Ms. Mei. In our visit today we have had a chance to go over subjective complaints, ph ysical examination findings and treatments including the natural course history without intervention and various interventional options. The patients imaging demonstrates: XRay taken on 04/30/22 of Lumbar Spine multiview and Pelvis at [facility]: AP lateral flexion-extension films of the lumbar spine obtained in the office and demonstrates spondylotic changes at L4-L5 and L5-S1. There is some abnormal motion noted between flexion-extension L4-L5. There is no acute fracture or other dislocation noted lumbar lordosis is reasonable at 56 of pelvic incidence around 60. No other acute fracture dislocation otherwise noted AP pelvis demonstrates congruent level pelvis no fracture no hip osteoarthritis MRI [facility] from05/25/22 of the lumbar spine: Images were obtained and reviewed with the patient in office. This demonstrates spondylosis L3 4 L4 5 with disc degeneration disc height loss and disc bulging. There is a herniation present at L4-L5 which is paracentral posterior lateral more prominent left-hand side causing left central and foraminal stenosis which is moderate to severe. There is encroachment on the L5 nerve root. L3 4 disc bulge is minimal. This disc herniation extending the lateral into the foramen at L4-L5.no other fractures or lesions noted CT scan from 12/09/21 of Lumbar Spine at [facility]: images are reviewed and demonstrate disc collapse spondylosis with endplate sclerosis at L4-L5. There is disc herniation present at L4-L5 which is notable. This is because there is some disc osteophyte complex which is noted. No acute fracture or other dislocations noted alignment is fairly well- maintained facet joints show that the left facet at L4 5 was nearly completely removed at her previous surgery. The right facet is sclerotic with air within the joint space as well as spondylotic and osteoarthritic. There facet cysts present. No other acute fracture or dislocation noted. On physical exam, Ms. Mei demonstrates: Patient continues to report a general lumbar pain that radiates into bilateral lower extremities, associated with numbness and tingling. Patient does report that she feels an increase of her symptoms into her right lower extremity. Patient takes gabapentin and norco for pain relief. Patient did have a ARNULFO injection on 07/14/2022 with some relief and did have a second injection with relief initially but pain got worse. Patient also notes groin pain. I have explained to the patient that as their condition progresses it will cause further neurological deficits and eventual paralysis. Based on the patients imaging, physical exam, and the rapid progression and disabling nature of their symptoms, at this time I recommend surgery in the form of a: L4-5 Decompression and Fusion . I discussed the risk and benefits of this procedure at length with Ms. Mei. The patient agreed to considered pursuing the procedure abovementioned. Prior to surgery, she should follow up with her PCP (Cardio, ID, IM etc) for clearance. Questions were invited and answered, and the patient wishes to proceed as outlined below. Currently, I am recommendin. L4-5 Decompression and Fusion Description of Procedure: L4-L5 MIS TLIF The patient was seen and examined in the preoperative area. All preoperative protocols were followed. Informed consent was obtained risks and benefits of the procedure were discussed at length. Risks including bleeding infection damage to the surrounding tissue and risk of reoperation were discussed with the patient. Risk of anesthesia up to and including was a discussed with the patient. These are outlined in the risk review. They were willing to accept these risks and all the risks of surgery. The patient was given a weight-based dose of antibiotics in the form of 2 g Ancef. The patient was seen and evaluated by the anesthesia team who deemed them fit for surgery. The site was marked, the patient was willing to proceed with the procedure. The patient was transferred to the operative suite by the Department of anesthesia. They were then drifted off to sleep by the department anesthesia and GETA was performed. The patient tolerated this well. Orozco catheter was placed by nursing staff, a-traumatically. Once confirmation of lines and ventilation the patient was transferred to a prone Magnus table very carefully. All bony prominences including wrists, elbows, axilla, chest, hips, and thighs, and feet were padded very well. Special attention was paid to the genitalia, and these were padded accordingly. SCDs were placed on bilateral lower extremities and were connected. Arms were well padded and placed on arm boards up and out in the 90/90 position. Once in position, again we confirmed good ventilation capabilities and that lines were running appropriately. The patients Lumbar spine was then exposed. 1010s were placed outlining the incision site. Standard alcohol was used to clean the incision site and allowed to dry. C-arm was used to needle localize the pedicles at L4-5 and bio-garo the patient and confirm level for incision which was marked with a skin marker. Operative briefing was performed with all teams and everyone in agreement to proceed. The patient was then prepped and draped in a normal sterile fashion. Timeout was then performed, and all parties agreed with the procedure to be performed. C arm was then used to target pedicles bilaterally at L4 and L5. Jamshidi was used and bi-planar fluoroscopy was used to access L4 pedicles. Once accessed wires were placed in their void. This was repeated at L5 bilaterally. Skin incision was then made along these wires and perfect scalpel was used over the wire to create a path and measure screw length. Screws were then placed over wires on the contralateral side. Once screw was at the back of the body wire was removed. The screws were confirmed to be in good position on AP and lateral. We then tested screws and they all tested above 20 mA. Attention was then turned to interbody fusion at L4-5. Tubular retractor system was placed at the interspace of L4-5 using biplanar c arm. Once in position and dilated up to 26mm tube it was locked to the bed and confirmed in good position. Microscope was then brought in for visualization. Limited myomectomy was performed and laminectomy, complete facetectomy and foraminotomy performed at L4-5 using high speed roel and Kerrison rongure. The ligamentum was removed and dural sac decompressed. Exiting and traversing roots visualized and decom pressed. Neural elements were then protected, and disc space accessed with an osteotome. Sequential shaving then done under lateral imaging and complete discectomy performed using lavonne, pituitary and curette. Once good bleeding endplates accomplished and good height mandaeism with trials, a combination of autograft, allograft and synthetic placed anterior in the disc space. The cage was then selected and impacted into place under lateral imaging. The cage was then expanded restoring height, lordosis and alignment. The cage was backfilled with bone graft through a funnel. The slot tag inserter removed and area inspected. Good cage placement, stable cage and no injuries. Area was irrigated copiously, and meticulous hemostasis achieved. The tubular retractor was then removed under direct visualization. Screws were then selected and placed over the previously placed wires on the ipsilateral side. This was done in the fashion described above. Screws were then tested, and all tested above 20 mA. Shells were then placed on the tabs. Zelalem length was then measured, and rods selected. They were then placed through the MIS tabs, subfascial. These were then locked into place with set screws and final tightened. Zelalem holders removed and images taken showing good placement of rods good lordosis and mandaeism of height. Tabs were broken off. Wounds were then copiously irrigated with NSS. [place] used for TP decortication and mixture of MagnatOs, allograft and autograft packed posterolateral. Facia was then closed with 0 Vircyl on a Scorpion suture passer for MIS closure. Deep subq closed with 0 Vicryl. Superficial subq closed with 2-0 Vicryl and skin with darnell. Wound edges approximated very well. Wound was then cleaned with alcohol and dried. Wounds dressed in Optifoam dressings. The patient was then transferred off the table back to their hospital bed a- traumatically. They were extubated by the department of anesthesia. They were then transferred to PACU in stable condition having tolerated the procedure with no complications.
== END 2023-01-10 13:34 | disposition home health service (06) ==
LOC: OR 12:16 → 4SSUR 17:45 → OR 01-10 13:34
PROVIDERS: ATTEND Orthopaedic Surgery
DX: M48.061 Spinal stenosis, lumbar region without neurogenic claudication (principal); M47.26 Other spondylosis with radiculopathy, lumbar region; M25.78 Osteophyte, vertebrae; J44.9 Chronic obstructive pulmonary disease, unspecified; K21.9 Gastro-esophageal reflux disease without esophagitis; Z90.89 Acquired absence of other organs; Z98.890 Other specified postprocedural states; Z83.3 Family history of diabetes mellitus; Z83.49 Family history of other endocrine, nutritional and metabolic diseases; Z80.3 Family history of malignant neoplasm of breast; Z79.51 Long term (current) use of inhaled steroids; Z79.899 Other long term (current) drug therapy
CPT/HCPCS: 94760; 97162; 80048; 85025; 72100; 72131; 22633; 63052; 22853; 22840; 20930; 20937; J2250; J2175; J0690 ×3; J2405 ×2; J1170 ×4; 81025

== ENCOUNTER 2023-09-09 17:37 | Observation (INO) | payer BC ==
--- NOTE | 2023-09-09 19:10 | ED ---
General Adult HPI - General Chief complaint: Chest Pain Stated complaint: high bp Time Seen by Provider: 09/09/23 17:50 Source: patient, RN notes reviewed, old records reviewed Mode of arrival: wheelchair Limitations: no limitations - History of Present Illness Initial comments: This is a 48-year-old female who presents to the emergency department compl aining that she had elevated blood pressure today she took a double dose of both of her blood pressure meds and it continued to be elevated. Patient states she has chest pressure and it radiates up into her jaw. Patient states she has a very strong family history of heart disease her mother had heart disease in her 50s. Patient states she also has a little bit of high cholesterol as well. Patient states she is on Adderall and has been taking it for 6 months without a problem and she takes her blood pressure nearly every day. Patient denies any fever chills or cough. Patient denies any sore throat. Patient Nuys any abdominal pain patient has nausea vomiting diarrhea. - Related Data Home Medications Medication Instructions Recorded Confirmed Amitriptyline HCl 10 mg PO HS 05/12/22 01/05/23 Gabapentin 300 mg PO HS 05/12/22 01/05/23 HYDROcodone/APAP 7.5-325MG [[place] 1 tab PO BID PRN 05/12/22 01/05/23 7.5-325] Omeprazole 40 mg PO DAILY PRN 05/12/22 01/05/23 lisinopriL [Zestril] 20 mg PO DAILY 09/14/22 01/05/23 Multivit-Min/Folic Acid/Biotin 133.3 mcg PO DAILY 10/09/22 01/05/23 [Hair, Skin and Nails Softgel] Multivitamins, Thera [Multivitamin 1 tab PO DAILY 10/09/22 01/05/23 (formulary)] Albuterol Sulfate [Proair 1 puff INHALATION Q6H PRN 01/05/23 01/05/23 Digihaler] Atomoxetine HCl [Strattera] 10 mg PO QAM 01/05/23 01/05/23 Budesonide-Formot 160-4.5 Mcg 2 puff INHALATION BID 01/05/23 01/05/23 [Symbicort 160-4.5 Mcg Inhaler] Triamterene/Hydrochlorothiazid 1 each PO DAILY 01/05/23 01/05/23 [Triamterene-Hctz 37.5-25 mg Cp] lamoTRIgine [LaMICtal] 50 mg PO BID 01/05/23 01/05/23 norethindrone-e.estradioL-iron 1 each PO HS 01/05/23 01/05/23 [Junel Fe 1.5 mg-30 Mcg Tablet] Previous Rx's Medication Instructions Recorded Cyclobenzaprine [Flexeril] 5 mg PO TID #90 tablet 01/10/23 Gabapentin [Neurontin] 300 mg PO TID #90 cap 01/10/23 Sennosides/Docusate Sodium [Senna 1 each PO DAILY PRN #20 capsule 01/10/23 Plus 8.6-50 mg Softgel] cefaDROXiL [Duricef] 500 mg PO Q12HR 5 Days #10 cap 01/10/23 oxyCODONE HCL/ACETAMINOPHEN 1 each PO Q4-6H PRN #56 tab 01/10/23 [Oxycodone-Acetaminophen 5-325] Allergies Allergy/AdvReac Type Severity Reaction Status Date / Time latex Allergy itchy, Verified 09/09/23 17:44 watery eyes Review of Systems ROS Statement: Those systems with pertinent positive or pertinent negative responses have been documented in the HPI. ROS Other: All systems not noted in ROS Statement are negative. Past Medical History Past Medical History: COPD, GERD/Reflux, Hypertension Additional Past Medical History / Comment(s): IRRITABLE BOWEL, degenerative disc disease. 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 History of Any Multi-Drug Resistant Organisms: None Reported Past Surgical History: Breast Surgery, Tonsillectomy Additional Past Surgical History / Comment(s): Back surgery, BREAST AUGMENTATION with silicone implants. LEEP procedure of the cervix in her 20s. pain procedures. COLONOSCOPY Past Anesthesia/Blood Transfusion Reactions: No Reported Reaction Past Psychological History: ADD/ADHD, Anxiety, Bipolar, Depression Smoking Status: Never smoker Past Alcohol Use History: Occasional Past Drug Use History: Marijuana - Past Family History Mother Family Medical History: Cancer, COPD, Diabetes Mellitus, Thyroid Disorder Additional Family Medical History / Comment(s): Breast cancer. Hypothyroidism. Maternal aunt has diabetes. Father Family Medical History: Unable to Obtain General Exam - General Exam Comments Initial Comments: GENERAL: Patient is well-developed and well-nourished. Patient is nontoxic and well- hydrated and is in mild distress. ENT: Neck is soft and supple. No significant lymphadenopathy is noted. Oropharynx is clear. Moist mucous membranes. Neck has full range of motion without eliciting any pain. EYES: The sclera were anicteric and conjunctiva were pink and moist. Extraocular movements were intact and pupils were equal round and reactive to light. Eyelids were unremarkable. PULMONARY: Unlabored respirations. Good breath sounds bilaterally. No audible rales rh onchi or wheezing was noted. CARDIOVASCULAR: There is a regular rate and rhythm without any murmurs gallops or rubs. ABDOMEN: Soft and nontender with normal bowel sounds. SKIN: Skin is clear with no lesions or rashes and otherwise unremarkable. NEUROLOGIC: Patient is alert and oriented x3. Cranial nerves II through XII are grossly intact. Motor and sensory are also intact. Normal speech, volume and content. Symmetrical smile. MUSCULOSKELETAL: Normal extremities with adequate strength and full range of motion. LYMPHATICS: No significant lymphadenopathy is noted PSYCHIATRIC: Normal psychiatric evaluation. Limitations: no limitations Course Vital Signs 09/09/23 09/09/23 09/09/23 17:41 19:28 20:10 Temperature 97.8 F Pulse Rate 108 H 67 82 Respiratory 18 16 16 Rate Blood Pressure 166/100 148/94 140/88 O2 Sat by Pulse 100 97 98 Oximetry Medical Decision Making - Medical Decision Making EKG is interpreted by myself read EKG shows a sinus rhythm at 73 bpm OH is 96 QRS is 80 QT interval 352 QTc is 378. Patient's EKG shows no ST segment ovation or depression. Was pt. sent in by a medical professional or institution (, PA, BREAKER ENGINEER, urgent care, hospital, or longterm...) When possible be specific @ -No Did you speak to anyone other than the patient for history (EMS, parent, family, police, friend...)? What history was obtained from this source @ -No Did you review nursing and triage notes (agree or disagree)? Why? @ -I reviewed and agree with nursing and triage notes Were old charts reviewed (outside hosp., previous admission, EMS record, old EKG, old radiological studies, urgent care reports/EKG's, longterm records)? Report findings @ -I reviewed prior charts prior lab work and prior radiological studies on this patient Differential Diagnosis (chest pain, altered mental status, abdominal pain women, abdominal pain men, vaginal bleeding, weakness, fever, dyspnea, syncope, headache, dizziness, GI bleed, back pain, seizure, CVA, palpatations, mental health, musculoskeletal)? @ -Differential Chest Pain: Stable Angina, Unstable Angina, STEMI, NSTEMI Aortic Dissection, Pneumothorax, Musculoskeletal, Esophageal Spasm GERD, Cholecystitis, Pancreatitis, Zoster, this is not meant to be an all-inclusive list. EKG interpreted by me (3pts min.). @ -As above X-rays interpreted by me (1pt min.). @ -Chest x-ray shows no acute abnormality CT interpreted by me (1pt min.). @ -None done U/S interpreted by me (1pt. min.). @ -None done What testing was considered but not performed or refused? (CT, X-rays, U/S, labs)? Why? @ -None What meds were considered but not given or refused? Why? @ -None Did you discuss the management of the patient with other professionals (professionals i.e. , PA, BREAKER ENGINEER, lab, RT, psych nurse, licensed master social worker, data warehouse administrator, teacher, neighborhood conservation officer, immigration case worker)? Give summary @ -I spoke with Dr. Edwards he agreed to admit the patient admit the patient and wrote admitting orders Was smoking cessation discussed for >3mins.? @ -No Was critical care preformed (if so, how long)? @ -No Were there social determinants of health that impacted care today? How? (Homelessness, low income, unemployed, alcoholism, drug addiction, transportation, low edu. Level, literacy, decrease access to med. care, intermediate, rehab)? @ -No Was there de-escalation of care discussed even if they declined (Discuss DNR or withdrawal of care, Hospice)? DNR status @ -No What co-morbidities impacted this encounter? (DM, HTN, Smoking, COPD, CAD, Cancer, CVA, ARF, Chemo, Hep., AIDS, mental health diagnosis, sleep apnea, morbid obesity)? @ -None Was patient admitted / discharged? Hospital course, mention meds given and route, prescriptions, significant lab abnormalities, going to OR and other pertinent info. @ -Patient was given hydralazine for the blood pressure and her blood pressure came down 140/90. Patient states the pressure in her chest was considerably relieved after Nitropaste. Undiagnosed new problem with uncertain prognosis? @ -No Drug Therapy requiring intensive monitoring for toxicity (Heparin, Nitro, Insulin, Cardizem)? @ -No Were any procedures done? @ -No Diagnosis/symptom? @ -Chest pain Acute, or Chronic, or Acute on Chronic? @ -Acute Uncomplicated (without systemic symptoms) or Complicated (systemic symptoms)? @ -Complicated Side effects of treatment? @ -No Exacerbation, Progression, or Severe Exacerbation? @ -No Poses a threat to life or bodily function? How? (Chest pain, [place], [place], pneumonia, PE, COPD, DKA, ARF, appy, cholecystitis, CVA, Diverticulitis, Homicidal, Suicidal, threat to staff... and all critical care pts) @ -Yes this could lead to an IL and end organ dysfunction Diagnosis/symptom? @ -Hypertensive urgency Acute, or Chronic, or Acute on Chronic? @ -Acute Uncomplicated (without systemic symptoms) or Complicated (systemic symptoms)? @ -Complicated Side effects of treatment? @ -None Exacerbation, Progression, or Severe Exacerbation] @ -No Poses a threat to life or bodily function? @ -No - Lab Data Result diagrams: 09/09/23 19:22 09/09/23 19:22 Lab Results 09/09/23 09/09/23 09/09/23 Range/Units 19:22 19:22 19:22 WBC 4.9 (3.8-10.6) k/uL RBC 4.54 (3.80-5.40) m/uL Hgb 13.6 (11.4-16.0) gm/dL Hct 40.1 (34.0-46.0) % MCV 88.2 (80.0-100.0) fL MCH 29.8 (25.0-35.0) pg MCHC 33.8 (31.0-37.0) g/dL RDW 13.1 (11.5-15.5) % Plt Count 194 (150-450) k/uL MPV 7.6 Neutrophils % 51 % Lymphocytes % 39 % Monocytes % 6 % Eosinophils % 1 % Basophils % 1 % Neutrophils # 2.5 (1.3-7.7) k/uL Lymphocytes # 1.9 (1.0-4.8) k/uL Monocytes # 0.3 (0-1.0) k/uL Eosinophils # 0.1 (0-0.7) k/uL Basophils # 0.1 (0-0.2) k/uL PT 11.0 (10.0-12.5) sec INR 1.0 (<1.2) APTT 25.9 (22.0-30.0) sec Sodium 136 L (137-145) mmol/L Potassium 3.9 (3.5-5.1) mmol/L Chloride 104 (98-107) mmol/L Carbon Dioxide 21 L (22-30) mmol/L Anion Gap 11 mmol/L BUN 14 (7-17) mg/dL Creatinine 0.89 (0.52-1.04) mg/dL Est GFR (CKD-EPI)AfAm 89 (>60 ml/min/1.73 sqM) Est GFR (CKD-EPI)NonAf 78 (>60 ml/min/1.73 sqM) Glucose 86 (74-99) mg/dL Calcium 9.9 (8.4-10.2) mg/dL Magnesium 1.8 (1.6-2.3) mg/dL Total Bilirubin 0.8 (0.2-1.3) mg/dL AST 36 (14-36) U/L ALT 26 (4-34) U/L Alkaline Phosphatase 81 (38-126) U/L Troponin I (0.000-0.034) ng/mL Total Protein 7.7 (6.3-8.2) g/dL Albumin 5.1 H (3.5-5.0) g/dL 09/09/23 Range/Units 19:22 WBC (3.8-10.6) k/uL RBC (3.80-5.40) m/uL Hgb (11.4-16.0) gm/dL Hct (34.0-46.0) % MCV (80.0-100.0) fL MCH (25.0-35.0) pg MCHC (31.0-37.0) g/dL RDW (11.5-15.5) % Plt Count (150-450) k/uL MPV Neutrophils % % Lymphocytes % % Monocytes % % Eosinophils % % Basophils % % Neutrophils # (1.3-7.7) k/uL Lymphocytes # (1.0-4.8) k/uL Monocytes # (0-1.0) k/uL Eosinophils # (0-0.7) k/uL Basophils # (0-0.2) k/uL PT (10.0-12.5) sec INR (<1.2) APTT (22.0-30.0) sec Sodium (137-145) mmol/L Potassium (3.5-5.1) mmol/L Chloride (98-107) mmol/L Carbon Dioxide (22-30) mmol/L Anion Gap mmol/L BUN (7-17) mg/dL Creatinine (0.52-1.04) mg/dL Est GFR (CKD-EPI)AfAm (>60 ml/min/1.73 sqM) Est GFR (CKD-EPI)NonAf (>60 ml/min/1.73 sqM) Glucose (74-99) mg/dL Calcium (8.4-10.2) mg/dL Magnesium (1.6-2.3) mg/dL Total Bilirubin (0.2-1.3) mg/dL AST (14-36) U/L ALT (4-34) U/L Alkaline Phosphatase (38-126) U/L Troponin I <0.012 (0.000-0.034) ng/mL Total Protein (6.3-8.2) g/dL Albumin (3.5-5.0) g/dL Disposition Clinical Impression: Chest pain, Hypertensive urgency Disposition: ADMITTED IP TO THIS [facility] Referrals: Familia Edwards MD [Primary Care Provider] - 1-2 days Time of Disposition: 20:26
[2023-09-09] MEDS: hydrALAZINE HCL 20 MG/ML 1 ML VIAL IVP STA (19:29)
[2023-09-09] MEDS: LORazepam 2 MG/ML INJ IV STA (19:29)
[2023-09-09 19:40] LABS: Basophils # (A) 0.1 k/uL (0-0.2); Basophils % (A) 1 %; Eosinophils # (A) 0.1 k/uL (0-0.7); Eosinophils % (A) 1 %; HCT 40.1 % (34.0-46.0); HGB 13.6 gm/dL (11.4-16.0); Lymphocytes # (A) 1.9 k/uL (1.0-4.8); Lymphocytes % (A) 39 %; MCH 29.8 pg (25.0-35.0); MCHC 33.8 g/dL (31.0-37.0); MCV 88.2 fL (80.0-100.0); Mean Platelet Volume 7.6; Monocytes # (A) 0.3 k/uL (0-1.0); Monocytes % (A) 6 %; Neutrophils # (A) 2.5 k/uL (1.3-7.7); Neutrophils % (A) 51 %; Platelet Count 194 k/uL (150-450); RBC 4.54 m/uL (3.80-5.40); RDW 13.1 % (11.5-15.5); WBC 4.9 k/uL (3.8-10.6)
[2023-09-09 19:49] LABS: Partial Thromboplastin Time 25.9 sec (22.0-30.0)
[2023-09-09 19:51] LABS: ALT 26 U/L (4-34); AST 36 U/L (14-36); African American GFR (CKD) 89 (>60 ml/min/1.73 sqM); Albumin 5.1 g/dL (3.5-5.0); Alkaline Phosphatase 81 U/L (38-126); Anion Gap 11 mmol/L; Blood Urea Nitrogen 14 mg/dL (7-17); Calcium 9.9 mg/dL (8.4-10.2); Carbon Dioxide 21 mmol/L (22-30); Chloride 104 mmol/L (98-107); Glucose 86 mg/dL (74-99); Magnesium 1.8 mg/dL (1.6-2.3); Non-African American GFR(CKD) 78 (>60 ml/min/1.73 sqM); Potassium 3.9 mmol/L (3.5-5.1); Sodium 136 mmol/L (137-145); Total Bilirubin 0.8 mg/dL (0.2-1.3); Total Protein 7.7 g/dL (6.3-8.2)
--- NOTE | 2023-09-09 19:53 | XR ---
EXAMINATION: XR chest 2V: 09/09/2023 7:16 PM CLINICAL INDICATION: Chest Pain TECHNIQUE: Departmental protocol COMPARISON: None FINDINGS: The lungs are clear. The pleural spaces are negative. The cardiac silhouette is not enlarged. The remainder of the mediastinal silhouette is unremarkable. The skeletal structures and soft tissues are negative for acute findings. IMPRESSION: No acute radiographic process.
[2023-09-09] MEDS ORDERED: NITROGLYCERIN SL TABS 0.4 MG TAB SUBLINGUAL PRN (20:26)
[2023-09-09] MEDS: ASPIRIN 81 MG PO STA (20:41)
[2023-09-09] MEDS ORDERED: methocarbamoL 750 MG TAB PO PRN (21:56)
[2023-09-09] MEDS ORDERED: HYDROcodone/APAP 5-325MG 1 EACH TAB PO PRN (21:56)
[2023-09-09] MEDS ORDERED: ALBUTEROL NEBULIZED 2.5 MG/3 ML INHALATION PRN (21:56)
[2023-09-09] MEDS: AMITRIPTYLINE HCL 10 MG TAB PO SCH (22:15)
[2023-09-09] MEDS: lamoTRIgine 100 MG TAB PO SCH (22:15)
[2023-09-09] MEDS: PANTOPRAZOLE 40 MG TABLET PO SCH (22:15)
[2023-09-09] MEDS: METOPROLOL SUCCINATE (ER) 25 MG TAB.ER.24H PO SCH (22:15)
[2023-09-09] MEDS: NITROGLYCERIN OINT 1 INCH/GM PACKET TOPICAL SCH (23:14)
[2023-09-10] MEDS: SYMBICORT 160-4.5 MCG INHALER INHALATION SCH (08:33)
[2023-09-10 09:34] LABS: Chol/HDL Ratio 1.97 Ratio; LDL Cholesterol,Calculated 78.4 mg/dL (0.0-131.0)
[2023-09-10] MEDS: lisinopriL 20 MG TAB PO SCH (11:51)
[2023-09-10] MEDS: ASPIRIN 325 MG TAB PO SCH (11:51)
--- NOTE | 2023-09-10 12:13 | CA ---
Stress Echo Report Sanjeev Mei Age: 48 Gender: F : 1975 Exam Date: 09/10/2023 10:36 Exam Location: [facility] Ht (in): 66 Wt (lb): 125 Ordering Physician: Sintia Telles Referring Physician: [id number] Sql Report Analyst: SANJEEV AVERY Technologist INGRID SHANKAR Procedure CPT: Indication: Chest Pain ICD-9 Codes: Rhythm: Patient History: CP, PALP, NUMBNESS FACE/NECK, HTN, FAMILY HX, COPD Cardiac Medications: SEE CHART Medications in past 24 hours: Contrast: N/A Stress Results Protocol: Edenilson Total dose(mL): Exercise Duration (min:sec): 9:[address] Depression (mm): Angina Score: Saucedo Score: METS: 10.3 Resting HR: 57 Resting BP: 118 / 66 Peak HR: 161 Peak BP: 154 / 80 Max Predicted HR: 173 93 % Max Predicted HR Target HR: 147 Double Product: 07003 Stress Summary: No chest pain with exercise BP Response: Reason for Termination: Reached target heart rate or work-load Cardiac Symptoms: ASYMPTOMATIC ECG Analysis Resting ECG: Normal sinus rhythm normal ECG Stress ECG: No significant ST-T wave changes diagnostic for ischemia by ST segment analysis Arrhythmia: No arrhythmias or ectopic beats during the stress to Echo Analysis Resting Echo: Normal global and segmental systolic function. No obvious resting regional wall motion abnormality Peak Echo Analysis: Normal augmentation of global and segmental systolic function. No stress-induced regional wall motion abnormality MEASUREMENTS (Male/Female) Normal Values CONCLUSIONS Overall normal treadmill echo stress test Good excess tolerance achieving 10.3 METS Normal hemodynamic and clinical response to exercise Nonischemic ECG and echo cardiographic response to exercise Dr Sherman Damian (Electronically Signed) Final Date: 10 September 2023 12:12
--- NOTE | 2023-09-10 12:14 | CA ---
Transthoracic Echo Report Name: Ramila Mei Age: 48 Gender: F : 1975 Exam Date: 09/10/2023 10:54 Exam Location: [facility] Ht (in): 66 Wt (lb): 125 Ordering Physician: Familia Edwards MD Attending/Referring Phys: [employer] Clerk Ramila Gamble RCS Procedure CPT: Indications: CP Cardiac Hx: Technical Quality: Good Contrast 1: Total Dose (mL): Contrast 2: Total Dose (mL): MEASUREMENTS (Male / Female) Normal Values 2D ECHO LV Diastolic Diameter PLAX 3.8 cm 4.2 - 5.9 / 3.9 - 5.3 cm LV Systolic Diameter PLAX 2.8 cm IVS Diastolic Thickness 0.8 cm 0.6 - 1.0 / 0.6 - 0.9 cm LVPW Diastolic Thickness 0.7 cm 0.6 - 1.0 / 0.6 - 0.9 cm LV Relative Wall Thickness 0.4 RV Internal Dim ED PLAX 2.9 cm LVOT Diameter 1.9 cm LV Diastolic Volume MOD BP 87.8 cm??? 67 - 155 / 56 - 104 cm??? LV Systolic Volume MOD BP 24.2 cm??? 22 - 58 / 19 - 49 cm??? LV Ejection Fraction MOD BP 72.4 % >= 55 % LV Cardiac Index MOD BP 2904.1 cm???/min???m??? LV Diastolic Volume MOD 4C 88.2 cm??? LV Systolic Volume MOD 4C 26.3 cm??? LV Ejection Fraction MOD 4C 70.2 % LV Cardiac Index MOD 4C 2827.0 cm???/min???m??? LV Diastolic Length 4C 7.9 cm LV Systolic Length 4C 6.5 cm LV Diastolic Volume MOD 2C 83.3 cm??? LV Systolic Volume MOD 2C 21.4 cm??? LV Ejection Fraction MOD 2C 74.3 % LV Cardiac Index MOD 2C 2823.9 cm???/min???m??? LV Diastolic Length 2C 8.3 cm LV Systolic Length 2C 6.8 cm LA Volume 24.8 cm??? 18 - 58 / 22 - 52 cm??? LA Volume Index 15.3 cm???/m??? 16 - 28 cm???/m??? DOPPLER AV Peak Velocity 109.5 cm/s AV Peak Gradient 4.8 mmHg AV Mean Velocity 81.5 cm/s AV Mean Gradient 2.9 mmHg AV Velocity Time Integral 21.4 cm LVOT Peak Velocity 92.6 cm/s LVOT Peak Gradient 3.4 mmHg LVOT Velocity Time Integral 16.8 cm LVOT Stroke Volume 49.7 cm??? LVOT Stroke Volume Index 30.3 ml/m??? LVOT Cardiac Index 2266.8 cm???/min???m??? AV Area Cont Eq vti 2.3 cm??? AV Area Cont Eq pk 2.5 cm??? MV Area PHT 3.5 cm??? Mitral E Point Velocity 52.4 cm/s Mitral A Point Velocity 36.8 cm/s Mitral E to A Ratio 1.4 MV Deceleration Time 217.6 ms FINDINGS Left Ventricle Left ventricular ejection fraction is estimated at 60-65 %. Left ventricular cavity size normal. Left ventricular wall thickness normal. No obvious regional wall motion abnormalities. Right Ventricle Normal right ventricular size and function. Unable to determine right ventricular systolic pressure. Right Atrium Normal right atrial size. Left Atrium Normal left atrial size. Mitral Valve Structurally normal mitral valve. No mitral stenosis, regurgitation or prolapse. Aortic Valve Aortic valve not well visualized. No aortic valve stenosis or regurgitation. Tricuspid Valve Structurally normal tricuspid valve. No tricuspid stenosis, regurgitation or prolapse. Pulmonic Valve Structurally normal pulmonic valve. No pulmonic stenosis. No pulmonic regurgitation. Pericardium No pericardial effusion. Aorta Normal size aortic root. Ascending aorta not well visualized. CONCLUSIONS Left ventricular ejection fraction is estimated at 60-65 %. No obvious regional wall motion abnormalities. Normal right ventricular size and function. No significant valvular dysfunction Previewed by: Dr Sherman Damian (Electronically Signed) Final Date: 10 September 2023 12:14
--- NOTE | 2023-09-10 13:53 | P.CRDCN ---
History of Present Illness Consult date: 09/10/23 Consult reason: chest pain (Hypertensive urgency) History of present illness: History of present illness: This is a 48-year-old female with past medical history of COPD, gastroesophageal reflux disease, hypertension marijuana use, heavy alcohol use in the past, non- smoker, bipolar disorder, degenerative disc disease. We have been asked to patricio luate the patient for chest pain and hypertensive urgency. Patient presented to the hospital with blood pressure 166/100. Patient states that she has been really tired, fell asleep the other night in the early evening and woke up with chest pain like 70 was standing on her chest that lasted for about 3 minutes. She states she has had hypertension for at least 20 years. She was at work yesterday and was very anxious that her blood pressure was high she went home at lunchtime and checked it and it was running 185/117. She doubled up on her medications and Rechecking her blood pressure but it did remain high although improved. She went back to work and then and then after her shift she came home she was having chest pain on the left side and then had some left cheek tingling and numbness. She decided to come into the hospital for further evaluation. She also gives history that her 2 years ago and has been drinking a lot of pop. EKG sinus rhythm, LVH Chest x-ray: No acute process CBC, INR, D-dimer all within normal limits. Troponins negative x 3. Sodium 136, potassium 3.9, CO2 21, BUN 14 and creatinine 0.89. Magnesium 1.8. Liver function test are normal. TSH 4.46. Home cardiac medications: Lisinopril 20 mg daily, Toprol-XL 25 mg at bedtime. Review Of Systems: At the time of my exam: CONSTITUTIONAL: Denies fever or chills. HEENT: Denies blurred vision, vision changes, or eye pain. Denies hemoptysis CARDIOVASCULAR: Denies chest pain. Denies orthopnea. Denies PND. Denies palpitations RESPIRATORY: Denies shortness of breath. GASTROINTESTINAL: Denies abdominal pain. Denies nausea or vomiting. HEMATOLOGIC: Denies bleeding disorders. GENITOURINARY: Denies any blood in urine. SKIN: Denies pruitis. Denies rash. Physical examination: Gen: This is a 48-year-old female in no acute distress VS: reviewed blood pressure 111/70, heart rate 60, pulse ox 99% on room air. HEENT: Head is atraumatic, normocephalic. Pupils equal, round. Sclerae is anicteric. NECK: Supple. No JVD. LUNGS: Clear to auscultation. No wheezes or rhonchi. No intercostal retract ions. HEART: Regular rate and rhythm. No murmur. ABDOMEN: Soft No tenderness. EXTREMITIES: No pedal edema. No calf tenderness. NEUROLOGICAL: Patient is awake, alert and oriented x3. Assessment: Atypical chest pain, acute coronary syndrome ruled out with negative troponins Plan: Resume patient's home cardiac medications Obtain stress echocardiogram today Obtain 2-D echocardiogram and Doppler study to assess cardiac structure and function If testing is unremarkable, patient is cleared for discharge home. She may follow-up in the office in 1 [address] Damian. Thank you kindly for this consultation. Nurse practitioner note has been reviewed, I agree with documented findings and plan of care. Patient was seen and examined. Past Medical History Past Medical History: COPD, GERD/Reflux, Hypertension Additional Past Medical History / Comment(s): IRRITABLE BOWEL, degenerative disc disease. 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 History of Any Multi-Drug Resistant Organisms: None Reported Past Surgical History: Breast Surgery, Tonsillectomy Additional Past Surgical History / Comment(s): Back surgery, BREAST AUGMENTATION with silicone implants. LEEP procedure of the cervix in her 20s. pain procedures. COLONOSCOPY Past Anesthesia/Blood Transfusion Reactions: No Reported Reaction Past Psychological History: ADD/ADHD, Anxiety, Bipolar, Depression Smoking Status: Never smoker Past Alcohol Use History: Occasional Additional Past Alcohol Use History / Comment(s): History of heavy alcohol use in the past. Past Drug Use History: Marijuana Additional Drug Use History / Comment(s): Delta 8-THC gummies nightly - INSTRUCTED TO REFRAIN FROM USE FOR AT LEAST 24 HOURS PRIOR TO PROCEDURE - Past Family History Mother Family Medical History: Cancer, COPD, Diabetes Mellitus, Thyroid Disorder Additional Family Medical History / Comment(s): Breast cancer. Hypothyroidism. Maternal aunt has diabetes. Father Family Medical History: Unable to Obtain Medications and Allergies Home Medications Medication Instructions Recorded Confirmed Type Amitriptyline HCl 10 mg PO HS 05/12/22 09/09/23 History lisinopriL [Zestril] 20 mg PO DAILY 09/14/22 09/09/23 History Budesonide-Formot 160-4.5 Mcg 2 puff INHALATION RT-BID 01/05/23 09/09/23 History [Symbicort 160-4.5 Mcg Inhaler] lamoTRIgine [LaMICtal] 100 mg PO HS 01/05/23 09/09/23 History Albuterol Inhaler [Ventolin Hfa 1 - 2 puff INHALATION RT-Q6H PRN 09/09/23 09/09/23 History Inhaler] Dextroamphetamine/Amphetamine 15 mg PO DAILY 09/09/23 09/09/23 History [Adderall Xr 15 mg Capsule] HYDROcodone/APAP 5-325MG [Binford 1 tab PO BID PRN 09/09/23 09/09/23 History 5-325] Metoprolol Succinate (ER) [Toprol 25 mg PO HS 09/09/23 09/09/23 History Xl] Omeprazole 20 mg PO HS 09/09/23 09/09/23 History Ulipristal Acetate [Jewels] 30 mg PO ONCE PRN 09/09/23 09/09/23 History methocarbamoL 750 mg PO TID PRN 09/09/23 09/09/23 History norethindrone-e.estradioL-iron 1 tab PO HS 09/09/23 09/09/23 History [Junel Fe 1 mg-20 Mcg Tablet] Allergies Allergy/AdvReac Type Severity Reaction Status Date / Time latex Allergy itchy, Verified 09/09/23 21:07 watery eyes Physical Exam Vitals: Vital Signs Temp Pulse Pulse Resp BP BP Pulse Ox 09/10/23 01:52 98 F 60 16 111/70 99 09/09/23 21:30 98.1 F 71 16 132/81 98 09/09/23 21:11 72 16 138/78 97 09/09/23 20:10 82 16 140/88 98 09/09/23 19:28 67 16 148/94 97 09/09/23 17:41 97.8 F 108 H 18 166/100 100 Intake and Output 09/09/23 09/10/23 09/10/23 22:59 06:59 14:59 Other: Voiding Method Toilet # Voids 1 1 Weight 56.699 kg Results 09/09/23 19:22 09/09/23 19:22 Cardiac Enzymes 09/09/23 09/09/23 09/09/23 Range/Units 19:22 19:22 22:21 AST 36 (14-36) U/L Troponin I <0.012 <0.012 (0.000-0.034) ng/mL 09/10/23 Range/Units 01:18 AST (14-36) U/L Troponin I <0.012 (0.000-0.034) ng/mL Coagulation 09/09/23 Range/Units 19: PT 11.0 (10.0-12.5) sec APTT 25.9 (22.0-30.0) sec CBC 09/09/23 Range/Units 19:22 WBC 4.9 (3.8-10.6) k/uL RBC 4.54 (3.80-5.40) m/uL Hgb 13.6 (11.4-16.0) gm/dL Hct 40.1 (34.0-46.0) % Plt Count 194 (150-450) k/uL Comprehensive Metabolic Panel 09/09/23 Range/Units 19:22 Sodium 136 L (137-145) mmol/L Potassium 3.9 (3.5-5.1) mmol/L Chloride 104 (98-107) mmol/L Carbon Dioxide 21 L (22-30) mmol/L BUN 14 (7-17) mg/dL Creatinine 0.89 (0.52-1.04) mg/dL Glucose 86 (74-99) mg/dL Calcium 9.9 (8.4-10.2) mg/dL AST 36 (14-36) U/L ALT 26 (4-34) U/L Alkaline Phosphatase 81 (38-126) U/L Total Protein 7.7 (6.3-8.2) g/dL Albumin 5.1 H (3.5-5.0) g/dL Current Medications Generic Name Dose Route Start Last Admin Trade Name Freq PRN Reason Stop Dose Admin Hydrocodone Bitart/Acetaminophen 1 each 09/09/23 21:56 Hydrocodone/Apap 5-325mg 1 Each Tab PO BID PRN Pain Albuterol Sulfate 2.5 mg 09/09/23 21:56 Albuterol Nebulized 2.5 Mg/3 Ml INHALATION RT-Q6H PRN Shortness Of Breath Amitriptyline HCl 10 mg 09/09/23 22:00 09/09/23 22:15 Amitriptyline Hcl 10 Mg Tab PO 10 mg HS [facility] Administration Aspirin 325 mg 09/10/23 09:00 Aspirin 325 Mg Tab PO DAILY [facility] Budesonide/Formoterol Fumarate 2 puff 09/10/23 08:00 Symbicort 160-4.5 Mcg Inhaler INHALATION RT-BID [facility] Lamotrigine 100 mg 09/09/23 22:00 09/09/23 22:15 Lamotrigine 100 Mg Tab PO 100 mg HS [facility] Administration Lisinopril 20 mg 09/10/23 09:00 Lisinopril 20 Mg Tab PO DAILY [facility] Methocarbamol 750 mg 09/09/23 21:56 Methocarbamol 750 Mg Tab PO TID PRN Muscle Spasm Metoprolol Succinate 25 mg 09/09/23 22:00 09/09/23 22:15 Metoprolol Succinate (Er) 25 Mg Tab.Er.24h PO 25 mg HS [facility] Administration Nitroglycerin 0.4 mg 09/09/23 20:26 Nitroglycerin Sl Tabs 0.4 Mg Tab SUBLINGUAL Q5M PRN Chest Pain Nitroglycerin 1 inch 09/10/23 00:00 09/10/23 05:44 Nitroglycerin Oint 1 Inch/Gm Packet TOPICAL Not Given Q6HR [facility] Pantoprazole Sodium 40 mg 09/09/23 22:00 09/09/23 22:15 Pantoprazole 40 Mg Tablet PO 40 mg HS [facility] Administration Intake and Output 09/09/23 09/10/23 09/10/23 22:59 06:59 14:59 Other: Voiding Method Toilet # Voids 1 1 Weight 56.699 kg 09/09/23 19:22 09/09/23 19:22
[2023-09-10 14:42] VITALS: BP 111/72; PULSE 62; RESP 16; TEMP 98
== END 2023-09-10 16:24 | disposition home or self-care (01) ==
LOC: EC 17:37 → 6NMEDSUR 20:26
PROVIDERS: ADMIT Family Medicine; ATTEND Family Medicine
DX: R07.89 Other chest pain (principal); I16.0 Hypertensive urgency; R68.84 Jaw pain; I10 Essential (primary) hypertension; E78.00 Pure hypercholesterolemia, unspecified; R20.0 Anesthesia of skin; R20.2 Paresthesia of skin; K58.0 Irritable bowel syndrome with diarrhea; K21.9 Gastro-esophageal reflux disease without esophagitis; F31.9 Bipolar disorder, unspecified; F41.9 Anxiety disorder, unspecified; Z79.51 Long term (current) use of inhaled steroids; Z79.3 Long term (current) use of hormonal contraceptives; Z79.899 Other long term (current) drug therapy; Z91.040 Latex allergy status; Z82.49 Family history of ischemic heart disease and other diseases of the circulatory system
CPT/HCPCS: 99285; 36415; 94640; 93005; 93306; 93351; 85379; 80061; 80053; 84443; 83735; 84484 ×2; 85025; 85610; 85730; 83036; 71046; G0378 ×2

== ENCOUNTER → 2024-08-22 | Outpatient (CLI) | payer OTHER ==
--- NOTE | 2024-08-22 15:25 | MM ---
Reason for Exam: Follow-up at short interval from prior study. Last mammogram was performed 2 year(s) and 4 month(s) ago. Patient History: Currently using Hormonal Contraceptives, starting at age 16. 2013, Bilateral Implants. Mother had breast cancer, age 45. Risk Values: Nely 5 year model risk: 1.5%. NCI Lifetime model risk: 15.1%. Prior Study Comparison: 08/17/2018 Bilateral MG screening mammo implant/CAD, [place]. 05/12/2022 Bilateral MG 3D screening mammo w/cad, [facility]. Tissue Density: The breasts are heterogeneously dense, which may obscure small masses. Findings: Bilateral breast implants are redemonstrated. No suspicious new mass or worrisome cluster of microcalcification in either breast. Overall Assessment: Incomplete: need additional imaging evaluation, BI-RAD 0 Management: Diagnostic Breast Ultrasound of the right breast. Targeted ultrasound right breast due to palpable abnormality. Results were given to the patient verbally at the time of exam. Patient should continue monthly self-breast exams. A clinical breast exam by your physician is recommended on an annual basis. This exam should not preclude additional follow-up of suspicious palpable abnormalities. Note on Nely scores and lifetime risk: 1. A Nely score greater than 3% is considered moderate risk. If this is the case, consider specialist referral to assess eligibility for a risk reducing agent. 2. If overall lifetime risk for the development of breast cancer is 20% or higher, the patient may qualify for future screening with alternating mammogram and breast MRI. [facility], , 08/22/2024 3:22 PM. Electronically signed and approved by: Keith Harman M.D.
--- NOTE | 2024-08-22 15:48 | USB ---
Reason for Exam: Clinical finding. Patient History: Currently using Hormonal Contraceptives, starting at age 16. 2013, Bilateral Implants. Mother had breast cancer, age 45. Risk Values: Nely 5 year model risk: 1.5%. NCI Lifetime model risk: 15.1%. Technique: Method: Targeted. Prior Study Comparison: 08/17/2018 Bilateral MG screening mammo implant/CAD, [place]. 05/12/2022 Bilateral MG 3D screening mammo w/cad, [facility]. Findings: The axilla of the right breast was scanned. Targeted ultrasound shows 3 benign appearing subcentimeter lymph nodes without suspicious eccentric cortical thickening or loss of fatty hilum. Overall Assessment: Benign, BI-RAD 2 Management: Screening Mammogram of both breasts in 1 year. Manage patient's symptoms clinically. A clinical breast exam by your physician is recommended on an annual basis and results should be correlated with mammographic findings. This exam should not preclude additional follow-up of suspicious palpable abnormalities. Results were given to the patient verbally at the time of exam. [facility], , 08/22/2024 3:45 PM. Electronically signed and approved by: Keith Harman M.D.
== END | disposition home or self-care (01) ==
LOC: RADMAMWWP 14:37
PROVIDERS: ATTEND Family Medicine
DX: R92.333 Mammographic heterogeneous density, bilateral breasts (principal); N60.01 Solitary cyst of right breast; Z80.3 Family history of malignant neoplasm of breast
CPT/HCPCS: 77066; 76642; G0279; 77062